=== PATIENT | female | born 1935 | race Caucasian/White ===

== ENCOUNTER 2016-10-22 17:53 | Observation (INO) | payer MEDICARE, MEDICAID ==
[2016-10-22 18:11] VITALS: BMI 37.5
--- NOTE | 2016-10-22 18:15 | ED PDOC ---
Arrival/HPI - General Time Seen by Provider: 10/22/16 18:05 Historian: Patient, Family - History of Present Illness Narrative History of Present Illness (Text): 10/22/16 18:13 Patient is a 81 year old female whose past medical history includes hypertension , diabetes, TIA, who presents to the emergency department with left arm pain after mechanical fall prior to arrival. Grandson translates history. Patient states she tripped and fell on a curb prior to arrival. She states she hit her face on the ground as well. Denies loss of consciousness. PMD: Dr. Sykes Time/Duration: Prior to Arrival Symptom Onset: Sudden Symptom Course: Unchanged Modifying Factors (Text): None Associated Symptoms (Text): None Past Medical History - Provider Review Nursing Documentation Reviewed: Yes - Cardiac Hx Hypertension: Yes - HEENT Hx HEENT Disorder: Yes (wears eye glasses) - Endocrine/Metabolic Hx Diabetes Mellitus Type 2: Yes - Hematological/Oncological Hx Anemia: Yes - Musculoskeletal/Rheumatological Hx Falls: No Hx Osteoarthritis: Yes Hx Osteoporosis: Yes - Gastrointestinal Hx Irritable Bowel: Yes - Psychiatric Hx Depression: Yes Hx Substance Use: No - Surgical History Hx Hysterectomy: Yes Family/Social History - Physician Review Nursing Documentation Reviewed: Yes Family/Social History: Unknown Family HX Smoking Status: Former Smoker Hx Alcohol Use: No Hx Substance Use: No Allergies/Home Meds Allergies/Adverse Reactions: Allergies Penicillins Allergy (Verified 10/22/16 18:11) ANAPHYLAXIS Home Medications: Home Meds Medication Instructions Recorded Confirmed Dicyclomine [Bentyl] 20 mg PO DAILY 03/11/16 03/11/16 Ibandronate [Boniva] 150 mg PO DAILY 03/11/16 03/11/16 Linaclotide [Linzess] 145 mcg PO DAILY 03/11/16 03/11/16 Meloxicam [Mobic] 15 mg PO DAILY 03/11/16 03/11/16 Metformin HCl [Glucophage] 500 mg PO BID 03/11/16 03/11/16 Niacin [Niacin ER] 1 tab PO DAILY 03/11/16 03/11/16 [place]-3 Acid Ethyl Esters [[place]-3 1 gm PO DAILY 03/11/16 03/11/16 Acid Ethyl Esters] Omeprazole [Omeprazole] 40 mg PO DAILY 03/11/16 03/11/16 Sertraline HCl [Sertraline HCl] 50 mg PO DAILY 03/11/16 03/11/16 Telmisartan/Hydrochlorothiazid 1 tab PO DAILY 03/11/16 03/11/16 [Telmisartan-Hctz 80-25 mg Tab] Tizanidine HCl [Zanaflex] 2 mg PO Q8H PRN 03/11/16 03/11/16 Review of Systems - Review of Systems Systems not reviewed;Unavailable: Language Barrier (son translates) Constitutional: absent: Fatigue, Fevers Eyes: absent: Vision Changes ENT: absent: Hearing Changes Respiratory: absent: SOB Cardiovascular: absent: Chest Pain Gastrointestinal: absent: Abdominal Pain Genitourinary Female: absent: Dysuria Musculoskeletal: Other (Left arm pain, left rib pain). absent: Back Pain, Neck Pain Skin: Other (abrasions). absent: Rash Neurological: absent: Dizziness, Focal Weakness Endocrine: absent: Diaphoresis Psychiatric: absent: Depression Physical Exam - Physical Exam Narrative Physical Exam (Text): Head: No scalp tenderness. No orbital tenderness. No pain with eye movements. No nasal tenderness. There is abrasion and tenderness to maxilla, no tmj tenderness. Normal jaw occlusion. No acute dental trauma. Eyes: PERRL. EOMI. Conjunctivae are not pale. Visual acuity and santana intact. ENT: Mucous membranes are moist and intact. No nasal tenderness. No orbital tenderness. Neck: Supple. Full ROM. No JVD. No lymphadenopathy. No midline tenderness. Cardiovascular: Regular rate. Regular rhythm. Systolic murmur. Pulmonary/Chest: No evidence of respiratory distress. Clear to auscultation bilaterally. Mild left ribcage pain with no crepitus or edema. Abdominal: Soft and non-distended. There is no tenderness. No rebound, guarding, or rigidity. No organomegaly. Good bowel sounds. Back: No CVA tenderness. No midline tenderness. Extremities: There is deformity noted to left humerus, no open laceration noted , no clavicular pain, no elbow or wrist pain, there are multiple abrasions noted to hand and toes, contractures noted to toes appear chronic, no ankle or achilles or knee pain, no hip with palpation or ROM, distal radial pulses intact , distal PT and DP pulses intact. Skin: Skin is warm and dry. No petechiae. No purpura. Abrasions noted to hand and toes with no obvious acute deformities. Neurological: Alert, awake, and oriented to person, place, time, and situation. Normal speech. Motor and sensory exam intact. Sensation intact distal to left upper extremity injury, motor and sensation intact distally, strong radial pulse, no wrist pain. Psychiatric: Good eye contact. Normal interaction, affect, and behavior. 10/22/16 21:47 Vital Signs Reviewed: Yes Vital Signs Pulse Resp BP Pulse Ox 10/22/16 21:01 79 18 178/78 H 100 10/22/16 17:54 80 18 185/77 H 100 Temperature: Afebrile Appearance: Positive for: Uncomfortable Pain Distress: Severe Mental Status: Positive for: Alert and Oriented X 3 Medical Decision Making ED Course and Treatment: Differential Diagnosis included but are not limited to: Fracture vs dislocation Prior Visits: Notes and results from previous visits were reviewed. Patient last seen in the ED on 03/02/16 for expressive aphasia and admitted for TIA. Progress Notes: Patient presents to ED history obtained from son and grandson who translate at bedside. Patient tripped and fell. No syncope. Does report she hit her head and complains of severe left arm pain. Reports pain to left chest with movement. Denies shortness of breath. She has prior history of stroke recently. Family states that she is at baseline and on exam there is no new deficits or focal weakness noted. CT obtained: CT Head w/o contrast IMPRESSION: No acute intracranial abnormality; atrophy and small vessel disease , unchanged; old infarcts, unchanged Dictated and Authenticated by: Judy Alvarez MD 10/22/2016 7:39 PM Eastern Time ([place] & [place]) CT Maxillofacial Without Intravenous Contrast IMPRESSION: No facial bone fracture; postsurgical changes in the maxillary sinuses with retention cysts/polyps Additional findings as described above. Dictated and Authenticated by: Judy Alvarez MD 10/22/2016 7:46 PM Eastern Time ([place] & [place]) 10/22/16 22:03 Chest xray with no pneumothorax or displaced rib fracture. Humerus xray with fracture with angulation and displacement, no shoulder dislocation noted. Hand and foot xrays with DJD, no obvious displaced fracture. Patient given IV morphine with some improvment in pain, although persists. Sling applied, patient remains neurovascularly intact. Multiple abrasions cleansed and dressed. Tetanus updated. Xray findings reviewed with family and patient. Previous admission in 2015, family requests admission to previous physician, which was Dr. Vasquez/Luis. This was discussed with Dr. Vasquez, who is agreeable to admission, requests Dr. Montero for ortho. I reviewed imaging with Dr. Pedraza, will continue sling, pain medication, will have patient sit up to improve angulation. Patient was found to be neurovascularly intact and patient was found to have no chest pain or shortness of breath with re-evaluation. Patient was noted to have no acute neuro deficits on re-evaluation. Treatment plan discussed extensively with son and patient. Will recommend follow -up with imaging official radiology reading. - Lab Interpretations Lab Results: 10/22/16 18:30 10/22/16 18:30 Lab Results 10/22/16 18:30: Sodium 140, Potassium 4.3, Chloride 107, Carbon Dioxide 21, Anion Gap 16, BUN 26 H, Creatinine 1.1, Est GFR ( Amer) 58, Est GFR (Non- Af Amer) 48, Random Glucose 92, Calcium 9.9, Total Bilirubin 0.5, AST 34, ALT 35 , Alkaline Phosphatase 76, Total Protein 8.3, Albumin 4.6, Globulin 3.7, Albumin /Globulin Ratio 1.2 10/22/16 18:30: PT 10.6, INR 0.98, APTT 27.1 10/22/16 18:30: WBC 4.1 L D, RBC 3.24 L, Hgb 10.7 L, Hct 31.0 L, MCV 95.7, MCH 33.0, MCHC 34.5, RDW 13.9, Plt Count 256, MPV 10.2, Gran % 58.6, Lymph % (Auto) 27.2, [place] % (Auto) 10.3 H, Eos % (Auto) 3.4, Baso % (Auto) 0.5, Gran # 2.39, Lymph # 1.1 L, [place] # 0.4, Eos # 0.1, Baso # 0.02 - RAD Interpretation Radiology Orders: 10/22/16 18:13 HEAD W/O CONTRAST [CT] Stat RIBS LEFT & PA CHEST [RAD] Stat 10/22/16 18:14 FOOT LEFT 3 VIEWS ROUTINE [RAD] Stat HAND LEFT 3 VIEWS ROUTINE [RAD] Stat SHOULDER LEFT [RAD] Stat 10/22/16 18:15 MAXILLOFACIAL W/O CONTRAST [CT] Stat 10/22/16 19:44 HUMERUS LEFT [RAD] Stat Senior Buyer Planner: Radiologist - EKG Interpretation EKG Interpretation (Text): 10/22/16 22:15 EKG at 20:11 normal sinus rhythm with first degree av block with premature atrial complexes Interpreted by ED Physician: Yes Type: 12 lead EKG - Medication Orders Current Medication Orders: Dextrose/Sodium Chloride (Dextrose 5%/0.45% Ns 1000 Ml) 1,000 mls @ 40 mls/hr IV .Q24H HERSON Morphine Sulfate (Morphine) 0.5 mg IVP Q4H PRN PRN Reason: Pain, moderate (4-7) Discontinued Medications Morphine Sulfate (Morphine) 2 mg IVP STAT STA Stop: 10/22/16 18:17 Last Admin: 10/22/16 18:38 Dose: 2 mg Tetanus/Reduced Diphtheria/Acell Pertussis (Boostrix Vaccine Inj) 0.5 ml IM .ONCE ONE Stop: 10/22/16 20:48 - Scribe Statement The provider has reviewed the documentation as recorded by the Lorenzo Rebolledo Provider Scribe Attestation: All medical record entries made by the Lorenzo were at my direction and personally dictated by me. I have reviewed the chart and agree that the record accurately reflects my personal performance of the history, physical exam, medical decision making, and the department course for this patient. I have also personally directed, reviewed, and agree with the discharge instructions and disposition. Disposition/Present on Arrival - Present on Arrival Any Indicators Present on Arrival: No History of DVT/PE: No History of Uncontrolled Diabetes: No Urinary Catheter: No History Surgical Site Infection Following: None - Disposition Have Diagnosis and Disposition been Completed?: Yes Diagnosis: Fracture, humerus, Head injury, Facial abrasion, Contusion of hand, Contusion, foot, Multiple abrasions, Rib contusion Disposition: HOSPITALIZED Disposition Time: 22:00 Patient Plan: Admission, Observation Condition: FAIR
[2016-10-22] MEDS ORDERED: Morphine 2 mg/ml ISec IVP STA (18:16)
[2016-10-22 18:41] LABS: ADD MANUAL DIFF? NO
[2016-10-22 19:17] LABS: BASO # 0.02 K/mm3 (0.0-2.0); BASO % 0.5 % (0.0-3.0); EOS # 0.1 (0.0-0.7); EOS % 3.4 % (1.5-5.0); GRAN # 2.39 (1.4-6.5); GRAN % 58.6 % (50.0-68.0); LYMPH # 1.1 (1.2-3.4); LYMPH % 27.2 % (22.0-35.0); MEAN CELL VOLUME 95.7 fL (80.0-105.0); MEAN CORPUSCULAR HGB CONC 34.5 g/dl (31.0-37.0); MEAN PLATELET VOLUME 10.2 fl (7.0-11.0); MONO # 0.4 (0.1-0.6); MONO % 10.3 % (1.0-6.0); PLATELET COUNT 256 10^3/uL (120.0-450.0); RED CELL DISTRIBUTION WIDTH 13.9 % (11.5-14.5); WHITE BLOOD COUNT 4.1 10^3/ul (4.5-11.0)
[2016-10-22 19:18] LABS: ALB/GLOB RATIO 1.2 (1.1-1.8); BILIRUBIN,TOTAL 0.5 mg/dL (0.2-1.3); CALCIUM 9.9 mg/dL (8.4-10.5); POTASSIUM 4.3 mmol/L (3.6-5.0); TOTAL PROTEIN 8.3 g/dL (5.8-8.3)
[2016-10-22 19:27] LABS: INR 0.98 (0.93-1.08); PARTIAL THROMBOPLASTIN TIME 27.1 Seconds (23.7-30.8)
--- NOTE | 2016-10-22 19:40 | CT ---
EXAM: CT Head Without Intravenous Contrast CLINICAL HISTORY: 81 years old, female; Injury or trauma; Fall; Additional info: Head injury TECHNIQUE: Axial computed tomography images of the head/brain without intravenous contrast. This CT exam was performed using one or more of the following dose reduction techniques: automated exposure control, adjustment of the mA and/or kV according to patient size, and/or use of iterative reconstruction technique. EXAM DATE/TIME: 10/22/2016 6:13 PM COMPARISON: CT - HEAD W/O (CODE STROKE) 03/11/2016 1:26:10 AM FINDINGS: Brain: There is dilatation of sulci gyri and ventricles. There is no midline shift. There is decreased attenuation in periventricular white matter. There is an old right periventricular white matter infarct. There are old right basal ganglia lacunar infarcts. There are no focal masses.There are basal ganglia calcifications. There are no focal hemorrhages. Nunes-white differentiation is visualized. Ventricles: See above Bones: Cranial vault is intact. Soft tissues: There are partially calcified subcutaneous scalp lesions, unchanged Sinuses: There is no acute sinusitis. Ears and mastoids: Middle ears and mastoids are unremarkable. Orbits: Orbital contents are unremarkable. Dental: There is streak artifact from dental fillings. IMPRESSION: No acute intracranial abnormality; atrophy and small vessel disease, unchanged; old infarcts, unchanged
--- NOTE | 2016-10-22 19:47 | CT ---
EXAM: CT Maxillofacial Without Intravenous Contrast CLINICAL HISTORY: 81 years old, female; Injury or trauma; Fall; Initial encounter; Abrasion; Forehead; Additional info: Facial trauma, upper lip pain TECHNIQUE: Axial computed tomography images of the face without intravenous contrast. This CT exam was performed using one or more of the following dose reduction techniques: automated exposure control, adjustment of the mA and/or kV according to patient size, and/or use of iterative reconstruction technique. Coronal and sagittal reformatted images were created and reviewed. EXAM DATE/TIME: 10/22/2016 6:15 PM COMPARISON: CT - HEAD W/O (CODE STROKE) 03/11/2016 1:26:10 AM FINDINGS: Bony structures: There are no facial bone fractures. There is streak artifact from dental fillings. There are degenerative changes in the upper cervical spine Brain: No acute abnormalities are seen in visualized portion of the brain. There are atrophic changes. A Ears and mastoids: Middle ears and mastoids are unremarkable Orbits: Orbital contents are unremarkable. Sinuses: There is no acute sinusitis. There are retention cysts/polyps in the maxillary sinuses. There have been bilateral antrectomies. Soft tissues: There are no superficial or deep facial masses. Airway: Airway is unremarkable. IMPRESSION: No facial bone fracture; postsurgical changes in the maxillary sinuses with retention cysts/polyps Additional findings as described above.
[2016-10-22] MEDS ORDERED: TDAP Vaccine 0.5 mL Syr IM ONE (20:47)
[2016-10-22] MEDS ORDERED: Dextrose 5%/0.45% NS 1,000 ML IV SCH (21:45)
--- NOTE | 2016-10-22 21:54 | CP.PCM.HP ---
<Hunter Scott - Last Filed: 10/22/16 23:26> History of Present Illness - History of Present Illness History of Present Illness: CC: "Fall" HPI: Pt is a 81 y/o F with a PMHx of HTN and Diabetes Mellitus who presents to the ED after reports of a fall earlier in the day, about 5 hours prior. Pt reports that she was walking when she tripped over the sidewalk and fell forward , landing on her left arm. Pt is accompanied by her grandson at bedside. Pt reports that she did not feel dizzy or faint prior to falling. Pt reports that she felt her heart racing after she fell because she was anxious. Pt is complaining of pain in her left arm and her right subcostal region. Pt reports that she did not hit her head, but scratched her lip. Pt denies fever, chills, chest pain, shortness of breath, nausea, and vomiting. PMHx: HTN, Diabetes Mellitus Home medications: Cannot recall home meds, but reports she takes diabetic, and HTN medications; grandson reports that he will bring her medication list Past Surgical Hx: Hysterectomy Allergies: Penicillin (rash) Social Hx: denies hx of smoking, alcohol, illicit drug use Family Hx: Diabetes, Cancer Present on Admission - Present on Admission Any Indicators Present on Admission: No Review of Systems - Constitutional Constitutional: absent: Chills, Fever - EENT Eyes: absent: Blurred Vision, Diplopia Ears: absent: Disequilibrium, Dizziness Nose/Mouth/Throat: absent: Epistaxis - Cardiovascular Cardiovascular: absent: Chest Pain, Dyspnea - Respiratory Respiratory: absent: Cough, Dyspnea - Gastrointestinal Gastrointestinal: absent: Abdominal Pain - Genitourinary Genitourinary: absent: Dysuria - Musculoskeletal Musculoskeletal: absent: Atrophy - Integumentary Integumentary: absent: Bleeding Lesions - Neurological Neurological: absent: Dizziness, Headaches - Psychiatric Psychiatric: absent: Anxiety - Hematologic/Lymphatic Hematologic: absent: Easy Bleeding Past Patient History - Past Social History Smoking Status: Former Smoker - CARDIAC Hx Hypertension: Yes - HEENT Hx HEENT Problems: Yes (wears eye glasses) - ENDOCRINE/METABOLIC Hx Diabetes Mellitus Type 2: Yes - HEMATOLOGICAL/ONCOLOGICAL Hx Anemia: Yes - MUSCULOSKELETAL/RHEUMATOLOGICAL Hx Falls: No Hx Osteoarthritis: Yes Hx Osteoporosis: Yes - GASTROINTESTINAL Hx Irritable Bowel: Yes - PSYCHIATRIC Hx Depression: Yes Hx Substance Use: No - SURGICAL HISTORY Hx Hysterectomy: Yes Meds Allergies/Adverse Reactions: Allergies Allergy/AdvReac Type Severity Reaction Status Date / Time Penicillins Allergy ANAPHYLAXIS Verified 10/22/16 18:11 Physical Exam - Constitutional Appears: No Acute Distress - Head Exam Head Exam: ATRAUMATIC, NORMOCEPHALIC - Eye Exam Eye Exam: EOMI, PERRL - ENT Exam ENT Exam: Mucous Membranes Moist. absent: Mucous Membranes Dry - Neck Exam Neck exam: Positive for: Full Rom. Negative for: Lymphadenopathy - Respiratory Exam Respiratory Exam: Clear to Auscultation Bilateral. absent: Rales, Rhonchi, Wheezes - Cardiovascular Exam Cardiovascular Exam: +S1, +S2. absent: Gallop, Rubs - GI/Abdominal Exam GI & Abdominal Exam: Normal Bowel Sounds, Soft. absent: Distended, Guarding, Tenderness - Extremities Exam Extremities exam: Positive for: pedal edema - Neurological Exam Neurological exam: Alert, Oriented x3 - Psychiatric Exam Psychiatric exam: Normal Affect, Normal Mood - Skin Skin Exam: Normal Color, Warm Results - Vital Signs Recent Vital Signs: Last Vital Signs Temp Pulse 79 10/22/16 21:01 Resp 18 10/22/16 21:01 BP 178/78 H 10/22/16 21:01 Pulse Ox 100 10/22/16 21:01 - Labs Result Diagrams: 10/22/16 18:30 10/22/16 18:30 Assessment & Plan - Assessment and Plan (Free Text) Assessment: Left humeral fracture secondary to fall: Left arm x-ray - humerus fracture (pending full report) Rib, hand, and foot x-ray pending Maxillofacial CT - no facial bone fracture (please see full report) Head CT - no acute intracranial abnormality (please see full report) EKG, chest x-ray, labs ordered for surgical clearance Pt made NPO D51/2NS IVF at 40 cc/hr Orthopedic surgery, Dr. Montero, consulted. Help appreciated. Diabetes Mellitus: Pt NPO D51/2NS IVF at 40 cc/hr Accuchecks achs HTN: Verify home meds Monitor bp B/L lower extremity edema: L/E venous dopplers pending Prophylactic Measures: DVT: Chemical anticoagulation held due to possible surgery in am, mechanical anticoagulation held due to b/l lower extremity edema GI: Protonix 40 mg po qd <Jan Vasquez - Last Filed: 10/27/16 08:54> Results - Vital Signs Recent Vital Signs: Last Vital Signs Temp 97.5 F L 10/23/16 07:30 Pulse 68 10/23/16 07:30 Resp 20 10/23/16 07:30 BP 157/72 H 10/23/16 07:30 Pulse Ox 98 10/23/16 07:30 - Labs Result Diagrams: 10/22/16 18:30 10/22/16 18:30 Attending/Attestation - Attestation I have personally seen and examined this patient.: Yes I have fully participated in the care of the patient.: Yes I have reviewed all pertinent clinical information: Yes Notes (Text): 10/27/16 08:54 Medical record note made by the resident after discussion with my direction and input after the patient was personally seen and examined by me. I have reviewed the chart and agree that the record accurately reflects by personal performance of the history, physical exam, data review, and medical decision-making, in the course for the patient. I have also personally directed the plan of care.
[2016-10-22] MEDS: Morphine 2 mg/ml ISec IVP PRN (22:03)
[2016-10-22 22:56] LABS: TROPONIN I 0.03 ng/mL
[2016-10-23] MEDS: Morphine 2 mg/ml ISec IVP PRN (00:13)
[2016-10-23] MEDS: Insulin Lispro (humaLOG) LOW Coverage SC SCH ×3 (07:35→17:17)
[2016-10-23 07:37] VITALS: BP 157/72; PULSE 68; RESP 20; TEMP 97.5; O2SAT 98
[2016-10-23 08:49] LABS: RETIC% 1.3 % (0.5-1.5)
[2016-10-23 09:06] LABS: IRON 59 ug/dL (45-180)
--- NOTE | 2016-10-23 09:15 | CARD ---
APPROVED REPORT EKG Measurement Heart [id number] <Conclusion> Sinus rhythm with 1st degree AV block with premature atrial complexes Otherwise normal ECG
--- NOTE | 2016-10-23 09:38 | CON ---
DATE: 10/23/2016 SUBJECTIVE: The patient suffered a displaced left humeral shaft fracture, nondominant arm, when she fell yesterday walking in the street; has mild imbalanced begin with. X-rays in the ER showed a spir al fracture, mildly displaced left humerus with a good humerus at the shaft with a good neurovascular status, mild deformity. I saw her this morning on 10/23/2016. I put her in a coaptation orthopedic cast splint and padded it well, and wrapped it with an Antonio bandage and she still has good neurovascu lar status and I will keep this coaptation sugar tong splint on for at least 2 weeks. The instructio ns through interpretation were: 1. Nonweightbearing on the left elbow. 2. Sleep sitting up and to not mobilize the left shoulder. I will see her in the office in a week's time and she has to sleep sitting up at home and do not put any weight on the left arm, but she coul d ambulate with assistance, so she does not fall again. I will follow her closely in the office every week to get periodic x-rays. There is no need for post -reduction x-ray now because the fracture is going to be improved by being dependent and to allow gra andrey to straighten it out in time. Artie Montero DO cc: [id number] TT: 10/23/2016 09:37:47 Confirmation # [id number] Dictation # [id number] juve
--- NOTE | 2016-10-23 09:45 | RAD ---
HISTORY: surgical clearance COMPARISON: 10/22/2016 FINDINGS: LUNGS: No active pulmonary disease. PLEURA: No significant pleural effusion identified, no pneumothorax apparent. CARDIOVASCULAR: Normal. OSSEOUS STRUCTURES: No significant abnormalities. VISUALIZED UPPER ABDOMEN: Normal. OTHER FINDINGS: None. IMPRESSION: No active disease.
--- NOTE | 2016-10-23 10:40 | RAD ---
PROCEDURE: Left humerus HISTORY: fracture COMPARISON: TECHNIQUE: Two views FINDINGS: There is a comminuted obliquely oriented displaced fracture through the midshaft of the humerus IMPRESSION: There is a comminuted obliquely oriented displaced fracture through the midshaft of the humerus
--- NOTE | 2016-10-23 10:41 | RAD ---
PROCEDURE: Radiographs of the Left Shoulder HISTORY: trauma, left shoulder pain COMPARISON: No prior. FINDINGS: BONES: There is a comminuted obliquely oriented displaced fracture through the midshaft of the humerus JOINTS: Normal. Glenohumeral and acromioclavicular joints preserved. No osteoarthritis. SOFT TISSUES: Normal. OTHER FINDINGS: None. IMPRESSION: There is a comminuted obliquely oriented displaced fracture through the midshaft of the humerus
--- NOTE | 2016-10-23 10:46 | RAD ---
PROCEDURE: Left Hand Radiographs. HISTORY: trauma COMPARISON: None. FINDINGS: BONES: Normal. No fracture. JOINTS: Degenerative changes are seen in the 3rd DIP joint and the base of the thumb SOFT TISSUES: Normal. OTHER FINDINGS: None. IMPRESSION: No acute fracture
--- NOTE | 2016-10-23 10:48 | RAD ---
PROCEDURE: Left Foot Radiographs. HISTORY: trauma COMPARISON: None. FINDINGS: BONES: Normal. No fracture. JOINTS: Degenerative changes are seen at the base of the metatarsals. Chronic bony deformity of the 1st proximal phalanx SOFT TISSUES: Normal. OTHER FINDINGS: None. IMPRESSION: No acute fracture
--- NOTE | 2016-10-23 10:49 | RAD ---
PROCEDURE: Radiographs of the Chest and Left Ribs. HISTORY: trauma, left rib pain COMPARISON: None available. TECHNIQUE: Frontal radiograph of the chest and multiple oblique radiographs of the left ribs were obtained. FINDINGS: LEFT RIBS: No fracture or focal lesion visualized. LUNGS: Clear. PLEURA: No pneumothorax or pleural fluid. CARDIOVASCULAR: Normal sized heart. No pulmonary vascular congestion. OTHER FINDINGS: None. IMPRESSION: Unremarkable radiographs of the chest and left ribs. No left rib fracture.
--- NOTE | 2016-10-23 13:27 | CP.PCM.DIS ---
<Tani Tomlin - Last Filed: 10/23/16 19:18> Provider - Provider Date of Admission: 10/22/16 20:52 Attending physician: Jeremie Smith MD Primary care physician: Zhang Sykes MD Consults: Orthopedic surgery - Dr. Montero Time Spent in preparation of Discharge (in minutes): 30 Hospital Course - Lab Results Lab Results: Most Recent Lab Values WBC 4.1 10^3/ul (4.5-11.0) L D 10/22/16 18:30 RBC 3.24 10^6/uL (3.5-6.1) L 10/22/16 18:30 Hgb 10.7 gm/dL (12.0-16.0) L 10/22/16 18:30 Hct 31.0 % (36.0-48.0) L 10/22/16 18:30 MCV 95.7 fL (80.0-105.0) 10/22/16 18:30 MCH 33.0 pg (25.0-35.0) 10/22/16 18:30 MCHC 34.5 g/dl (31.0-37.0) 10/22/16 18:30 RDW 13.9 % (11.5-14.5) 10/22/16 18:30 Plt Count 256 10^3/uL (120.0-450.0) 10/22/16 18:30 MPV 10.2 fl (7.0-11.0) 10/22/16 18:30 Gran % 58.6 % (50.0-68.0) 10/22/16 18:30 Lymph % (Auto) 27.2 % (22.0-35.0) 10/22/16 18:30 Nuckolls % (Auto) 10.3 % (1.0-6.0) H 10/22/16 18:30 Eos % (Auto) 3.4 % (1.5-5.0) 10/22/16 18:30 Baso % (Auto) 0.5 % (0.0-3.0) 10/22/16 18:30 Gran # 2.39 (1.4-6.5) 10/22/16 18:30 Lymph # 1.1 (1.2-3.4) L 10/22/16 18:30 Nuckolls # 0.4 (0.1-0.6) 10/22/16 18:30 Eos # 0.1 (0.0-0.7) 10/22/16 18:30 Baso # 0.02 K/mm3 (0.0-2.0) 10/22/16 18:30 Retic Count 1.30 % (0.5-1.5) 10/23/16 08:30 PT 10.6 Seconds (9.9-11.8) 10/22/16 18:30 INR 0.98 (0.93-1.08) 10/22/16 18:30 APTT 27.1 Seconds (23.7-30.8) 10/22/16 18:30 Sodium 140 mmol/L (132-148) 10/22/16 18:30 Potassium 4.3 mmol/L (3.6-5.0) 10/22/16 18:30 Chloride 107 mmol/L (98-107) 10/22/16 18:30 Carbon Dioxide 21 mmol/L (21-33) 10/22/16 18:30 Anion Gap 16 (10-20) 10/22/16 18:30 BUN 26 mg/dL (7-21) H 10/22/16 18:30 Creatinine 1.1 mg/dL (0.5-1.4) 10/22/16 18:30 Est GFR ( Amer) 58 10/22/16 18:30 Est GFR (Non-Af Amer) 48 10/22/16 18:30 Random Glucose 92 mg/dL (70-110) 10/22/16 18:30 Calcium 9.9 mg/dL (8.4-10.5) 10/22/16 18:30 Iron 59 ug/dL (45-180) 10/23/16 08:30 TIBC 247 ug/dL (265-497) L 10/23/16 08:30 % Saturation 24 % (20-55) 10/23/16 08:30 Total Bilirubin 0.5 mg/dL (0.2-1.3) 10/22/16 18:30 AST 34 U/L (15-39) 10/22/16 18:30 ALT 35 U/L (7-56) 10/22/16 18:30 Alkaline Phosphatase 76 U/L (38-133) 10/22/16 18:30 Lactate Dehydrogenase 682 U/L (333-699) 10/22/16 22:20 Total Creatine Kinase 125 U/L (35-230) 10/22/16 22:20 Troponin I 0.03 ng/mL D 10/22/16 22:20 Total Protein 8.3 g/dL (5.8-8.3) 10/22/16 18:30 Albumin 4.6 g/dL (3.0-4.8) 10/22/16 18:30 Globulin 3.7 gm/dL 10/22/16 18:30 Albumin/Globulin Ratio 1.2 (1.1-1.8) 10/22/16 18:30 - Hospital Course Hospital Course: Patient is a 81yo F w/ PMHx of HTN and DM Type II who presented to the ED from a fall approximately 5 hours prior. Patient reports landing on her L arm. Head CT was ordered, which was negative for any bleeds or intracranial abnormalities. Maxillofacial CT showed no facial bone fracture. Left ribs, foot , and hand X-ray were negative for fractures. CXR was negative. ECG showed sinus rhythm w/ 1st degree AV block w/ premature atrial complexes. Humerus X- ray showed comminuted obliquely oriented displaced fracture through the midshaft of the humerus, which was also discovered in the shoulder X-ray. Ortho was consulted and as per Dr. Nur, coaptation orthopedic cast splint was put on with padding and fernanda bandage. Patient was instructed to 1. Not place any weight on the left shoulder or arm and 2. Sleep in an upright position with no weight baring on the shoulder. Considering that the patient has good neurovascular status, she was instructed to follow up at Dr. Nur's office on Sunday, October 30. She was told to call tomorrow and make an appointment. Dr. De Jesus provided his office phone number and address. In the meantime, no weight bearing on L elbow was advised. Patient was discharged with the splint in place and was advised to continue home medications. Patient and family were agreeable to discharge. Discharge Exam - Head Exam Head Exam: ATRAUMATIC, NORMOCEPHALIC - Eye Exam Eye Exam: EOMI, PERRL - ENT Exam ENT Exam: Mucous Membranes Moist - Respiratory Exam Respiratory Exam: Clear to PA & Lateral. absent: Rales, Rhonchi, Wheezes - Cardiovascular Exam Cardiovascular Exam: RRR, +S1, +S2. absent: Gallop, JVD, Rubs - GI/Abdominal Exam GI & Abdominal Exam: Normal Bowel Sounds, Soft. absent: Distended, Firm, Guarding, Hernia, Rebound, Tenderness - Extremities Exam Additional comments: left upper extremity mobility limited, tender to palpation; sensory intact; neurovascularly intact; pulses intact 2/4 motor function 5/5 bilaterally in upper and lower extremities sensory intact throughout - Neurological Exam Neurological exam: Alert, Oriented x3 - Psychiatric Exam Psychiatric exam: Normal Affect, Normal Mood - Skin Skin Exam: Dry, Intact, Normal Color, Warm Discharge Plan - Follow Up Plan Condition: FAIR Disposition: HOME/ ROUTINE Instructions: Arm Fracture in Adults (DC), Fall Prevention (DC) Additional Instructions: 1. Follow up with your PMD, Dr. Sykes within 1 week of discharge. 2. Follow up with your orthopedic surgeon, Dr. Montero within 1 week of discharge. Please contact his office today to setup an appointment. 3. Return to the emergency room if your symptoms worsen or change in severity/ quality. 4. Follow the instructions the orthopedic surgeon provided to you: 1. Do not place any weight on your shoulder/arm. 2. Sleep upright in a position that does not place any pressure on your left arm. 3. Follow up with the orthopedic surgeon in 1 week. Notes from your RN Delia: *It may help to prop your left arm up on a pillow while you sleep. Please do not let the arm "drag" down. This is what is meant by non weight bearing. *Dr. Montero's office phone number is [phone]. Please call him to set up an appointment. *Please try to keep your cast dry. You may place a plastic bag over it and tape it closed when you bathe or shower. *Please have assistance in showering and/or bathing, as you may feel off balance with the weight of the cast. *If you lose feeling in your fingers or the skin changes color (blue or purple) , please return to the emergency room. Referrals: Zhang Sykes MD [Primary Care Provider] - Artie Montero DO [Staff Provider] - <Jan Vasquez - Last Filed: 10/27/16 08:59> Provider - Provider Date of Admission: 10/22/16 20:52 Attending physician: Jeremie Smith MD Primary care physician: Zhang Sykes MD Hospital Course - Lab Results Lab Results: Most Recent Lab Values WBC 4.1 10^3/ul (4.5-11.0) L D 10/22/16 18:30 RBC 3.24 10^6/uL (3.5-6.1) L 10/22/16 18:30 Hgb 10.7 gm/dL (12.0-16.0) L 10/22/16 18:30 Hct 31.0 % (36.0-48.0) L 10/22/16 18:30 MCV 95.7 fL (80.0-105.0) 10/22/16 18:30 MCH 33.0 pg (25.0-35.0) 10/22/16 18:30 MCHC 34.5 g/dl (31.0-37.0) 10/22/16 18:30 RDW 13.9 % (11.5-14.5) 10/22/16 18:30 Plt Count 256 10^3/uL (120.0-450.0) 10/22/16 18:30 MPV 10.2 fl (7.0-11.0) 10/22/16 18:30 Gran % 58.6 % (50.0-68.0) 10/22/16 18:30 Lymph % (Auto) 27.2 % (22.0-35.0) 10/22/16 18:30 Nuckolls % (Auto) 10.3 % (1.0-6.0) H 10/22/16 18:30 Eos % (Auto) 3.4 % (1.5-5.0) 10/22/16 18:30 Baso % (Auto) 0.5 % (0.0-3.0) 10/22/16 18:30 Gran # 2.39 (1.4-6.5) 10/22/16 18:30 Lymph # 1.1 (1.2-3.4) L 10/22/16 18:30 Nuckolls # 0.4 (0.1-0.6) 10/22/16 18:30 Eos # 0.1 (0.0-0.7) 10/22/16 18:30 Baso # 0.02 K/mm3 (0.0-2.0) 10/22/16 18:30 Retic Count 1.30 % (0.5-1.5) 10/23/16 08:30 PT 10.6 Seconds (9.9-11.8) 10/22/16 18:30 INR 0.98 (0.93-1.08) 10/22/16 18:30 APTT 27.1 Seconds (23.7-30.8) 10/22/16 18:30 Sodium 140 mmol/L (132-148) 10/22/16 18:30 Potassium 4.3 mmol/L (3.6-5.0) 10/22/16 18:30 Chloride 107 mmol/L (98-107) 10/22/16 18:30 Carbon Dioxide 21 mmol/L (21-33) 10/22/16 18:30 Anion Gap 16 (10-20) 10/22/16 18:30 BUN 26 mg/dL (7-21) H 10/22/16 18:30 Creatinine 1.1 mg/dL (0.5-1.4) 10/22/16 18:30 Est GFR ( Amer) 58 10/22/16 18:30 Est GFR (Non-Af Amer) 48 10/22/16 18:30 POC Glucose (mg/dL) 155 mg/dL (65-110) H 10/23/16 16:15 Random Glucose 92 mg/dL (70-110) 10/22/16 18:30 Calcium 9.9 mg/dL (8.4-10.5) 10/22/16 18:30 Iron 59 ug/dL (45-180) 10/23/16 08:30 TIBC 247 ug/dL (265-497) L 10/23/16 08:30 % Saturation 24 % (20-55) 10/23/16 08:30 Ferritin 133.0 ng/mL 10/23/16 08:30 Total Bilirubin 0.5 mg/dL (0.2-1.3) 10/22/16 18:30 AST 34 U/L (15-39) 10/22/16 18:30 ALT 35 U/L (7-56) 10/22/16 18:30 Alkaline Phosphatase 76 U/L (38-133) 10/22/16 18:30 Lactate Dehydrogenase 682 U/L (333-699) 10/22/16 22:20 Total Creatine Kinase 125 U/L (35-230) 10/22/16 22:20 Troponin I 0.03 ng/mL D 10/22/16 22:20 Total Protein 8.3 g/dL (5.8-8.3) 10/22/16 18:30 Albumin 4.6 g/dL (3.0-4.8) 10/22/16 18:30 Globulin 3.7 gm/dL 10/22/16 18:30 Albumin/Globulin Ratio 1.2 (1.1-1.8) 10/22/16 18:30 Vitamin B12 658 pg/mL (239-931) 10/23/16 08:30 Folate > 20.0 ng/mL 10/23/16 08:30 Serum Immunofixation See note 10/23/16 08:30 Attending/Attestation - Attestation I have personally seen and examined this patient.: Yes I have fully participated in the care of the patient.: Yes I have reviewed all pertinent clinical information, including history, physical exam and plan: Yes Notes (Text): 10/27/16 08:59 Medical record note made by the resident after discussion with my direction and input after the patient was personally seen and examined by me. I have reviewed the chart and agree that the record accurately reflects by personal performance of the history, physical exam, data review, and medical decision-making, in the course for the patient. I have also personally directed the plan of care.
--- NOTE | 2016-10-23 16:14 | US ---
HISTORY: Leg pain and swelling. Evaluate for DVT PHYSICIAN(S): Jae Colorado MD. TECHNIQUE: Duplex sonography and color-flow Doppler with graded compression were used to evaluate the deep venous systems of both lower extremities. The exam is limited by body habitus and edema. FINDINGS: The visualized deep venous systems of both lower extremities are sonographically normal and compressible. Normal wave forms and augmentation are seen. There is no sonographic evidence for deep venous thrombosis in the visualized segments of both lower extremities. IMPRESSION: No sonographic evidence for deep venous thrombosis in the visualized segments of both lower extremities.
[2016-10-23 19:18] LABS: FOLATE > 20.0 ng/mL
== END 2016-10-23 18:54 | disposition home or self-care (01) ==
LOC: ED 17:53 → ERH 20:52 → 5RNO 23:33
PROVIDERS: ADMIT Internal Medicine; ATTEND Internal Medicine
DX: S42.352A Displaced comminuted fracture of shaft of humerus, left arm, initial encounter for closed fracture (principal); S09.90XA Unspecified injury of head, initial encounter; S60.229A Contusion of unspecified hand, initial encounter; S20.219A Contusion of unspecified front wall of thorax, initial encounter; S00.81XA Abrasion of other part of head, initial encounter; W01.0XXA Fall on same level from slipping, tripping and stumbling without subsequent striking against object, initial encounter; I10 Essential (primary) hypertension; E11.9 Type 2 diabetes mellitus without complications; M81.0 Age-related osteoporosis without current pathological fracture; R60.0 Localized edema; Y93.01 Activity, walking, marching and hiking; Y92.480 Sidewalk as the place of occurrence of the external cause; Y99.9 Unspecified external cause status; Z90.710 Acquired absence of both cervix and uterus; Z87.891 Personal history of nicotine dependence; Z86.73 Personal history of transient ischemic attack (TIA), and cerebral infarction without residual deficits; Z83.3 Family history of diabetes mellitus
CPT/HCPCS: 36415; 70450; 70486; 71010; 71101; 73030; 73060; 73130; 73630; 80053; 82550; 82607; 82728; 82746; 82948; 83540; 83550; 83615; 84484; 85025; 85044; 85610; 85730; 86334; 90471; 90715; 93005; 93970; 96374; 99285; G0378; J2270; J7042

== ENCOUNTER 2016-10-24 22:13 | Emergency (ER) | payer MEDICARE, MEDICAID ==
[2016-10-24 22:14] VITALS: BMI 37.5
[2016-10-24 22:43] VITALS: BP 132/78; PULSE 78; RESP 18; TEMP 98.1; O2SAT 99
--- NOTE | 2016-10-24 23:42 | ED PDOC ---
Arrival/HPI - General Chief Complaint: Finger,Hand,&Wrist Time Seen by Provider: 10/24/16 22:34 Historian: Patient, Family - History of Present Illness Narrative History of Present Illness (Text): 10/25/16 03:07 81yr old female with recent fx to humerus presents with family concern for swelling to hand and eccymosis. family is worried that the wrapping is too tight because there is now ecchymosis and swelling to the dorsal hand. pt denies numbness, weakness, tingling in the extremity. no fever/chills. denies pain at present time. no other complaints. pt was just discharge from hospital yesterday after being treated by dr. kang for humerus fracture Past Medical History - Provider Review Nursing Documentation Reviewed: Yes - Travel History Have you recently traveled outside [place] w/in the past 3 mons?: No - Cardiac Hx Hypertension: Yes - HEENT Hx HEENT Disorder: Yes (wears eye glasses) - Endocrine/Metabolic Hx Diabetes Mellitus Type 2: Yes - Hematological/Oncological Hx Anemia: Yes - Musculoskeletal/Rheumatological Hx Falls: No Hx Osteoarthritis: Yes Hx Osteoporosis: Yes - Gastrointestinal Hx Irritable Bowel: Yes - Psychiatric Hx Depression: Yes Hx Substance Use: No - Surgical History Hx Hysterectomy: Yes Family/Social History - Physician Review Nursing Documentation Reviewed: Yes Family/Social History: Unknown Family HX Smoking Status: Former Smoker Hx Alcohol Use: No Hx Substance Use: No Allergies/Home Meds Allergies/Adverse Reactions: Allergies Penicillins Allergy (Verified 10/22/16 18:11) ANAPHYLAXIS Home Medications: Home Meds Medication Instructions Recorded Confirmed Dicyclomine [Bentyl] 20 mg PO DAILY 03/11/16 03/11/16 Ibandronate [Boniva] 150 mg PO DAILY 03/11/16 03/11/16 Linaclotide [Linzess] 145 mcg PO DAILY 03/11/16 03/11/16 Meloxicam [Mobic] 15 mg PO DAILY 03/11/16 03/11/16 Metformin HCl [Glucophage] 500 mg PO BID 03/11/16 03/11/16 Niacin [Niacin ER] 1 tab PO DAILY 03/11/16 03/11/16 [place]-3 Acid Ethyl Esters 1 gm PO DAILY 03/11/16 03/11/16 Omeprazole 40 mg PO DAILY 03/11/16 03/11/16 Sertraline HCl 50 mg PO DAILY 03/11/16 03/11/16 Telmisartan/Hydrochlorothiazid 1 tab PO DAILY 03/11/16 03/11/16 [Telmisartan-Hctz 80-25 mg Tab] Tizanidine HCl [Zanaflex] 2 mg PO Q8H PRN 03/11/16 03/11/16 Review of Systems - Review of Systems Constitutional: absent: Fatigue Respiratory: absent: SOB, Cough Cardiovascular: absent: Chest Pain, Palpitations Gastrointestinal: absent: Abdominal Pain, Nausea, Vomiting Musculoskeletal: Arthralgias, Other (swelling and ecchymosis) Skin: absent: Rash, Pruritis Neurological: absent: Headache, Dizziness Psychiatric: absent: Anxiety Physical Exam Vital Signs Reviewed: Yes Vital Signs Temp Pulse Resp BP Pulse Ox 10/24/16 22:40 98.1 F 78 18 132/78 99 10/24/16 22:36 98.1 F 78 18 132/78 99 Temperature: Afebrile Blood Pressure: Normal Pulse: Regular Respiratory Rate: Normal Appearance: Positive for: Well-Appearing, Non-Toxic, Comfortable Pain Distress: None Mental Status: Positive for: Alert and Oriented X 3 - Systems Exam Head: Present: Atraumatic Respiratory/Chest: Present: Clear to Auscultation Cardiovascular: Present: Regular Rate and Rhythm Upper Extremity: Present: NORMAL PULSES, Swelling, Neurovascularly Intact, Capillary Refill < 2s, Other (left arm; coaptation splint noted to left arm; antonio wrap and cling on forearm; arm in sling; there is ecchymosis and swelling noted to the dorsal aspect of the hand; sensation intact, cap refill <2. radial pulse palpable and strong. ). No: Normal ROM, Erythema Neurological: Present: Speech Normal Skin: Present: Warm, Dry, Normal Color. No: Rashes Psychiatric: Present: Alert, Oriented x 3 Medical Decision Making ED Course and Treatment: 10/24/16 23:46 pt non toxic well appearing; no distress. pt with left humeral fracture, in splint. pt with swelling and bruising to the left hand. cap refill <2. sensation intact , radial pulse present. there are no signs of decreased circulation or compartment syndrome. pt has full rom of all fingers. no paresthesias. The Antonio wrap and dressing on the forearm into the hand is NOT tight; i am able to place my fingers inside the dressing and palpate the radial pulse. case discussed with dr. kang. pt can f/u in his office on . pt seen and evaluated by dr. ramirez; no signs of circulatory problems. Patient was advised to keep the hand elevated higher than the elbow while using the sling to minimize the amount of swelling into the dorsal aspect of the hand impression: bruise, hand swelling hand, humeral fracture f/u with dr. kang keep hand elevated, use sling return if symptoms worsen,persist or if new symptoms develop. Disposition/Present on Arrival - Present on Arrival Any Indicators Present on Arrival: Yes History of DVT/PE: No History of Uncontrolled Diabetes: Yes Urinary Catheter: No History of Decub. Ulcer: No History Surgical Site Infection Following: None - Disposition Have Diagnosis and Disposition been Completed?: Yes Diagnosis: Arm bruise, Arm swelling, Humeral fracture Disposition: HOME/ ROUTINE Disposition Time: 23:38 Patient Plan: Discharge Condition: GOOD Additional Instructions: Follow up with dr. kang on ; call tomorrow to schedule an appointment keep hand elevated, use sling follow up with the primary care physician within the next 2 days return immediately if symptoms worsen,persist or if new symptoms develop. Referrals: Zhang Sykes MD [Primary Care Provider] - Follow up with primary Artie Kang DO [Staff Provider] - Follow up with primary
== END 2016-10-24 23:55 | disposition home or self-care (01) ==
LOC: ED 22:13
DX: S42.302A Unspecified fracture of shaft of humerus, left arm, initial encounter for closed fracture (principal); S40.022A Contusion of left upper arm, initial encounter; X58.XXXA Exposure to other specified factors, initial encounter; M79.89 Other specified soft tissue disorders; Z87.891 Personal history of nicotine dependence; I10 Essential (primary) hypertension; E11.9 Type 2 diabetes mellitus without complications

== ENCOUNTER 2018-08-11 21:51 | Inpatient (IN) | payer MEDICARE, MEDICAID ==
[2018-08-11] MEDS ORDERED: Heparin25000 units/250ml 1/2NS 25,000 UNITS/250 ML BAG IV PRN (22:31)
[2018-08-11 22:45] LABS: BASO # 0.01 K/mm3 (0.0-2.0); BASO % 0.2 % (0.0-3.0); EOS # 0.1 (0.0-0.7); EOS % 1.2 % (1.5-5.0); HEMOGLOBIN 9.3 g/dL (12.0-16.0); LYMPH # 0.6 (1.2-3.4); LYMPH % 12.4 % (22.0-35.0); MEAN CELL VOLUME 96.9 fl (80.0-105.0); MEAN CORPUSCULAR HEMOGLOBIN 31.7 pg (25.0-35.0); MEAN CORPUSCULAR HGB CONC 32.7 g/dl (31.0-37.0); MEAN PLATELET VOLUME 10.3 fl (7.0-11.0); MONO # 0.6 (0.1-0.6); MONO % 12.4 % (1.0-6.0); RBC 2.93 10^6/uL (3.5-6.1); RED CELL DISTRIBUTION WIDTH 14.3 % (11.5-14.5); WHITE BLOOD COUNT 4.9 10^3/uL (4.5-11.0)
--- NOTE | 2018-08-11 22:45 | ED PDOC ---
Arrival/HPI - General Chief Complaint: Palpitations Historian: Patient, Family (Family at bedside deny any history of aFib) - History of Present Illness Narrative History of Present Illness (Text): 82 year old female, whose past medical history includes TIA, hypertension, and diabetes, who was transferred from [facility] ER to the emergency department for shortness of breath and new onset aFib. Patient states she has had shortness of breath over the past 2 days. Family denies any history of aFib and notes they have an appointment with [facility] [employer], whose name they do not know, on 08/13/18 for establishing care visit. Pt and family notes some mild leg swelling. Patient denies any chest pain, abdominal pain, constipation, diarrhea, dark/bloody stools, recent traumas or falls or any other complaints. PMD: Zhang Davis The transferring physician is Jose Guardado from [facility] emergency room for aFib and shortness of breath. Transferred per patients request- as family is from [place] and would be difficult for them to go to [facility]. 08/12/18 01:08 Time/Duration: Other (Patient notes shortness of breath over past 2 days, transferred from [facility] ER for shortness of breath and aFib) Symptom Onset: Sudden Symptom Course: Unchanged Activities at Onset: Light Past Medical History - Provider Review Nursing Documentation Reviewed: Yes - Cardiac Hx Hypertension: Yes - HEENT Hx HEENT Disorder: Yes (wears eye glasses) - Endocrine/Metabolic Hx Diabetes Mellitus Type 2: Yes - Hematological/Oncological Hx Anemia: Yes - Musculoskeletal/Rheumatological Hx Falls: No Hx Osteoarthritis: Yes Hx Osteoporosis: Yes - Gastrointestinal Hx Irritable Bowel: Yes - Psychiatric Hx Depression: Yes Hx Substance Use: No - Surgical History Hx Hysterectomy: Yes Family/Social History - Physician Review Nursing Documentation Reviewed: Yes Family/Social History: No Known Family HX Smoking Status: Former Smoker Hx Alcohol Use: No Hx Substance Use: No Allergies/Home Meds Allergies/Adverse Reactions: Allergies Penicillins Allergy (Verified 08/11/18 22:02) ANAPHYLAXIS Home Medications: Home Meds Medication Instructions Recorded Confirmed Metformin HCl [Glucophage] 500 mg PO BID 03/11/16 08/11/18 Ferron-3 Acid Ethyl Esters 1 gm PO DAILY 03/11/16 08/11/18 Omeprazole 40 mg PO DAILY 03/11/16 08/11/18 Bumetanide [Bumex] 0.5 mg PO DAILY 08/11/18 08/11/18 Butalbit/Acetamin/Caff/Codeine 1 cap PO Q4H PRN 08/11/18 08/11/18 [[id number]-[id number]-Codein] Cyanocobalamin [Vitamin B12 1000 1,000 mcg PO DAILY 08/11/18 08/11/18 mcg Tab] Ergocalciferol (Vitamin D2) 1 cap PO MO 08/11/18 08/11/18 [Vitamin D2] Ibandronate Sodium [Boniva] 150 mg PO DAILY 08/11/18 08/11/18 Iron Polysaccharide [Ferrex-150] 150 mg PO BID 08/11/18 08/11/18 Nebivolol [Bystolic] 10 mg PO DAILY 08/11/18 08/11/18 Review of Systems - Physician Review All systems were reviewed & negative as marked: Yes - Review of Systems Constitutional: absent: Fatigue, Weight Change Eyes: absent: Vision Changes ENT: absent: Hearing Changes, Tinnitus Respiratory: SOB (Patient notes shortness of breath over the past 2 days ). absent: Normal Cardiovascular: Normal. absent: Chest Pain Gastrointestinal: Normal. absent: Abdominal Pain, Stool Changes (Patient denies dark/bloody stools ), Constipation, Diarrhea, Nausea, Vomiting, Appetite Changes, Hematochezia, Hematemesis Genitourinary Female: absent: Dysuria, Frequency, Hematuria Musculoskeletal: absent: Arthralgias, Back Pain, Neck Pain Skin: absent: Rash, Pruritis, Skin Lesions, Laceration Neurological: absent: Headache, Dizziness, Focal Weakness, Gait Changes Physical Exam Vital Signs Reviewed: Yes Vital Signs Temp Pulse Resp BP Pulse Ox 08/11/18 22:00 97.7 F 87 16 160/84 H 100 Temperature: Afebrile Blood Pressure: Hypertensive Pulse: Regular Respiratory Rate: Normal Appearance: Positive for: Well-Appearing, Non-Toxic Pain Distress: None Mental Status: Positive for: Alert and Oriented X 3 - Systems Exam Head: Present: Atraumatic, Normocephalic Pupils: Present: PERRL Extroacular Muscles: Present: EOMI Conjunctiva: Present: Normal Mouth: Present: Moist Mucous Membranes Pharnyx: Present: Normal Neck: Present: Normal Range of Motion. No: Meningeal Signs, MIDLINE TENDERNESS Respiratory/Chest: Present: Other (Mild cackles heard in lungs). No: Respiratory Distress (not in any acute distress) Cardiovascular: Present: Irregular Rhythm (Irregularly irregular heart rhythm ) Abdomen: Present: Normal Bowel Sounds. No: Tenderness, Distention, Peritoneal Signs Back: Present: Normal Inspection. No: CVA Tenderness, Midline Tenderness Upper Extremity: Present: Normal Inspection. No: Cyanosis, Edema Lower Extremity: Present: Edema (Bilateral pitting edema 1+ ). No: Normal Inspection Neurological: Present: GCS=15, CN II-XII Intact, Speech Normal Skin: Present: Warm, Dry, Normal Color. No: Rashes Psychiatric: Present: Alert, Oriented x 3, Normal Insight, Normal Concentration Medical Decision Making ED Course and Treatment: 08/11/18 22:20 Impression: 82 year old female who was transferred from [facility] emergency room to the emergency department for shortness of breath and aFib. Afib noted on the monitor. No headache, weakness of FND. No chest pain. No abdominal pain. No dark or bloody stool. No weakness. Likely new onset afib. Pt is on nidolol for BP control. Differential Diagnosis included but are not limited to: Plan: -- Labs -- EKG -- Glucose, POC Routine -- Lasix -- Heparin -- Reassess and disposition Prior Visits: Notes and results from previous visits were reviewed. Progress Notes: 08/11/18 22:30 Spoke to Lazarus Umanzor, who said no rate control at this time but recommends starting a Heparin drip. Patient denies any dark or bloody stool, recent falls, traumas, current anticoagulants or family history of bleeding disorders. Will start Heparin. Patient has mild crackles in lungs, otherwise no acute distress. Patient was giv en Albuterol at [facility], will administer lasix given mild crackles. Xray from previous site largely unremarkable. 08/11/18 22:[address] Contreras who is aware of and agrees with plan. Dr. Contreras accepts patient onto her service. pt in NAD, agreeable to plan. - EKG Interpretation EKG Interpretation (Text): 08/11/18 EKG: Ordered, reviewed, and independently interpreted the EKG. Rate : 59 BPM Rhythm : aFib Interpretation : No STEMI Interpreted by ED Physician: Yes Type: 12 lead EKG - Scribe Statement The provider has reviewed the documentation as recorded by the Lorenzo Mcdermott All medical record entries made by the Lorenzo were at my direction and personally dictated by me. I have reviewed the chart and agree that the record accurately reflects my personal performance of the history, physical exam, medical decision making, and the department course for this patient. I have also personally directed, reviewed, and agree with the discharge instructions and disposition. Disposition/Present on Arrival - Present on Arrival Any Indicators Present on Arrival: No History of DVT/PE: No History of Uncontrolled Diabetes: Yes Urinary Catheter: No History of Decub. Ulcer: No History Surgical Site Infection Following: None - Disposition Have Diagnosis and Disposition been Completed?: Yes Diagnosis: New onset a-fib, Shortness of breath Disposition Time: 22:45 Patient Problems: Current Active Problems Problem Status Onset New onset a-fib Acute Shortness of breath Acute Condition: STABLE
[2018-08-11 22:54] LABS: INR 1.12; PARTIAL THROMBOPLASTIN TIME 36.9 Seconds (26.9-38.3); PROTHROMBIN TIME 12.4 SECONDS (9.4-12.5)
[2018-08-11 22:59] LABS: ALB/GLOB RATIO 1.4 (1.1-1.8); ALBUMIN 4.5 g/dL (3.0-4.8); ALT/SGPT 45 U/L (7-56); AST/SGOT 57 U/L (14-36); BLOOD UREA NITROGEN 37 mg/dL (7-21); GFR NON-AFRICAN AMERICAN 43
[2018-08-11 23:10] LABS: B-TYPE NATRIURETIC PEPTIDE 6470 pg/mL (0-450); TROPONIN I < 0.01 ng/mL
[2018-08-11] MEDS ORDERED: Heparin 25,000units in 1/2NS 250 ML BAG IV PRN (23:12)
[2018-08-12 08:58] LABS: BASO # 0.02 K/mm3 (0.0-2.0); BASO % 0.4 % (0.0-3.0); EOS # 0.1 (0.0-0.7); EOS % 2.5 % (1.5-5.0); HEMOGLOBIN 9.2 g/dL (12.0-16.0); LYMPH # 0.8 (1.2-3.4); LYMPH % 16.1 % (22.0-35.0); MEAN CELL VOLUME 97.2 fl (80.0-105.0); MEAN CORPUSCULAR HEMOGLOBIN 32.2 pg (25.0-35.0); MEAN CORPUSCULAR HGB CONC 33.1 g/dl (31.0-37.0); MEAN PLATELET VOLUME 10.5 fl (7.0-11.0); MONO # 0.9 (0.1-0.6); MONO % 18.6 % (1.0-6.0); RBC 2.86 10^6/uL (3.5-6.1); RED CELL DISTRIBUTION WIDTH 14.1 % (11.5-14.5); WHITE BLOOD COUNT 4.8 10^3/uL (4.5-11.0)
--- NOTE | 2018-08-12 09:21 | CARD ---
APPROVED REPORT Date of service: 08/11/2018 EKG Measurement Heart [id number] <Conclusion> Atrial fibrillation with slow ventricular response Abnormal ECG
[2018-08-12 09:29] LABS: PARTIAL THROMBOPLASTIN TIME 137.7 Seconds (26.9-38.3)
[2018-08-12 09:35] LABS: INR 1.17; PROTHROMBIN TIME 13.2 SECONDS (9.4-12.5)
[2018-08-12] MEDS ORDERED: Enoxaparin 60 mg Syringe SC STA (13:26)
--- NOTE | 2018-08-12 15:12 | RAD ---
Date of service: 08/12/2018 PROCEDURE: CHEST RADIOGRAPH, 1 VIEW HISTORY: chf COMPARISON: 10/22/2016 FINDINGS: LUNGS: Clear. PLEURA: No pneumothorax or pleural fluid seen. CARDIOVASCULAR: No aortic atherosclerotic calcification present. Moderate cardiomegaly OSSEOUS STRUCTURES: No significant abnormalities. VISUALIZED UPPER ABDOMEN: Normal. OTHER FINDINGS: None. IMPRESSION: No active disease.
[2018-08-12 15:14] VITALS: BMI 36.2
[2018-08-12] MEDS ORDERED: Influenza Vaccine 60 mcg/0.5 mL SYR (4YR UP) IM ONE (15:14)
[2018-08-12] MEDS ORDERED: Pneumococcal 23-Valent Vaccine IM ONE (15:14)
[2018-08-12] MEDS: Enoxaparin 60 mg Syringe SC SCH (18:01)
--- NOTE | 2018-08-12 19:56 | CON ---
DATE: 08/12/2018 CARDIOLOGY CONSULT REASON FOR CONSULTATION: Hypertension, weakness, and new onset of atrial fibrillation. HISTORY OF PRESENT ILLNESS: The patient is an 82-year-old female who has a history of TIA in the past, history of hypertension, and diabetes mellitus, who was transferred from [facility] emergency room because of shortness of breath and new onset of atrial fibrillation. The patient was found to be in atrial fibrillation in her 50s and the patient denies any syncopal episode and is unaware of any prior history of heart attack and history of . Brain MRI was performed as an outpatient. PAST MEDICAL HISTORY: Hypertension, diabetes mellitus, and old CVA. SOCIAL HISTORY: The patient is a nonsmoker and nondrinker. She lives with her daughter. MEDICATIONS: The patient is currently on intravenous heparin infusion and therapeutic regimen for atrial fibrillation. REVIEW OF SYSTEMS: No fever or chills. No syncope or recent fall. No nausea or vomiting. No hematemesis or melena. PHYSICAL EXAMINATION: GENERAL: The patient is an elderly female who does not appear to be in acute distress. VITAL SIGNS: Blood pressure 137/59, heart rate of 47, temperature 98.2, and respirations 20. HEENT: Normocephalic. CHEST: Bilateral rhonchi. HEART: S1 and S2 regular. ABDOMEN: Soft. EXTREMITIES: Trace leg edema. LABORATORY DATA: SMA-7; sodium 139, potassium 5.2, chloride 110, CO2 of 21, glucose 114, BUN 37, and creatinine 1.2. ProBNP is 6470. First troponin is negative. TSH level is within normal limit. The latest PTT is 137 seconds. INR is within normal limits. ASSESSMENT: 1. New onset atrial fibrillation, currently with slow ventricular response. 2. Consider underlying congestive heart failure. 3. Hypertension and diabetes mellitus. 4. History of old cerebrovascular accident. 5. Mild hyperkaliemia. 6. Mild anemia. RECOMMENDATIONS: Discontinue intravenous heparin and start therapeutic subcutaneous Lovenox regimen. Obtain an echocardiogram, portable chest x-ray, and I will administer 1 dose of 40 mg of intravenous Lasix now. Lazarus Benoit MD [facility] # [id number]
[2018-08-13] MEDS ORDERED: Apap-Butalbital-Caffeine 325-50-40mg Tab PO PRN
--- NOTE | 2018-08-13 02:02 | HP ---
DATE OF EXAM: 08/12/2018 The patient was seen and examined in the emergency room on 08/12/2018 REASON FOR ADMISSION: Shortness of breath, new onset atrial fibrillation. HISTORY OF PRESENT ILLNESS: The patient is an 82-year-old female with past medical history of TIA, hypertension, diabetes mellitus, who is actually transferred from [facility] ER through the emergency department for shortness of breath and new onset atrial fibrillation. The patient says that she has had shortness of breath over the past three days. Family denies any history of atrial fibrillation in the past. Daughter was sitting on the bedside. The patient has appointment with the regulatory submissions associate, who they do not remember the name. The patient has swelling of the legs also. Denies constipation, diarrhea, blood in the stool, hematuria, or hematochezia. PAST MEDICAL HISTORY: As above, hypertension, diabetes mellitus, osteoarthritis, osteoporosis, irritable bowel syndrome, depression, hysterectomy. FAMILY HISTORY: Father and mother noncontributory. HABITS: Former smoker, now no smoking. No drugs. No ethanol. ALLERGIES: THE PATIENT IS ALLERGIC WITH PENICILLIN. HOME MEDICATIONS: Glucophage, omega-3, Bumex, Sudafed, cyanocobalamin, vitamin D2, Brovana, iron, Bystolic. REVIEW OF SYSTEMS: The patient was seen and examined at the bedside, looking comfortable. No fevers. No chills. No hematuria. No hematochezia. Still having shortness of breath. Feeling fatigued and tired. No headache. No dizziness. No focal weakness. PHYSICAL EXAMINATION: VITAL SIGNS: Temperature 97.7, pulse 87, respirations 16, blood pressure 116/84, pulse oximetry 100%. HEENT: Head; normocephalic, atraumatic. Eyes; PERRLA, extraocular muscles intact, conjunctivae clear. Nose patent. NECK: Supple. No carotid bruits. No JVD or thyromegaly. CHEST: Bilaterally symmetrical. HEART: S1 and S2 positive. LUNGS: Clear to auscultation. ABDOMEN: Soft. Bowel sounds positive. No organomegaly. EXTREMITIES: No edema. No cyanosis. NEUROLOGIC: The patient is awake and alert, moving all four extremities. No focal deficit. LABORATORY DATA: White blood cell is 4.8, hemoglobin 9.2, hematocrit 27.8, platelets 205. Sodium 139, potassium 5.4, BUN 37, creatinine of 1.7. Random glucose of 114. AST 57. ASSESSMENT AND PLAN: The patient is an 82-year-old lady with anemia, hyperkalemia, hyperchloremia, increased BUN, hyperglycemia, abnormal liver function test, congestive heart failure, has new onset atrial fibrillation. Chest x-ray done. According to Dr. Sebastien Alva, no active disease noted. The patient is seen by Cardiology, Dr. Kaycee Qiu. History of hypertension, diabetes mellitus, old cerebrovascular accident, new onset atrial fibrillation currently with slow ventricular response, mild anemia. PLAN: The patient was getting heparin. Information Clerk Brokerage discontinued heparin, started putting the patient on Lovenox regimen. Obtain echocardiography, chest x-ray. Gave a dose of Lasix. GI and DVT prophylaxis provided. Repeat labs. Length of time family discussion was done with the patient's daughter. We will follow up. Nati Contreras MD
[2018-08-13 07:19] LABS: HEMOGLOBIN 9.8 g/dL (12.0-16.0); MEAN CELL VOLUME 97.4 fl (80.0-105.0); MEAN CORPUSCULAR HEMOGLOBIN 31.5 pg (25.0-35.0); MEAN CORPUSCULAR HGB CONC 32.3 g/dl (31.0-37.0); MEAN PLATELET VOLUME 10.6 fl (7.0-11.0); RBC 3.11 10^6/uL (3.5-6.1); RED CELL DISTRIBUTION WIDTH 14.3 % (11.5-14.5); WHITE BLOOD COUNT 4.8 10^3/uL (4.5-11.0)
[2018-08-13] MEDS: Pantoprazole 40 mg EC Tab PO SCH (07:35)
[2018-08-13 07:43] LABS: IRON 73 ug/dL (45-180)
[2018-08-13 07:53] LABS: % IRON SATURATION 24 % (20-55); TOTAL IRON BINDING CAPACITY 302 ug/dL (265-497)
[2018-08-13] MEDS: Insulin Reg-LOW-Coverage SC SCH ×4 (08:49→23:22)
[2018-08-13 08:50] LABS: HDL CHOLESTEROL 70 mg/dL (29-60)
[2018-08-13 09:00] LABS: TROPONIN I 0.02 ng/mL
[2018-08-13 09:02] LABS: LDL CHOLESTEROL 142 mg/dL (0-129)
[2018-08-13] MEDS: Enoxaparin 60 mg Syringe SC SCH (09:35)
[2018-08-13] MEDS: Omega-3-Acid Ethyl Esters 1 GM Cap PO SCH (09:35)
[2018-08-13] MEDS: Iron Complex Polysacch 150mg Cap PO SCH ×2 (09:36→17:33)
[2018-08-13] MEDS: Non Formulary Medication (Febuxostat [Uloric] 40 MG) PO SCH (09:47)
[2018-08-13] MEDS ORDERED: IBANDRONATE SODIUM PO SCH (10:00)
--- NOTE | 2018-08-13 14:01 | CON ---
DATE: 08/13/2018 PULMONARY CONSULT NOTE REFERRING PHYSICIAN: Dr. Contreras. REASON FOR CONSULTATION: Shortness of breath, new onset atrial fibrillation. HISTORY OF PRESENT ILLNESS: This is an 82-year-old female with past medical history significant for TIA, hypertension, diabetes mellitus, osteoarthritis, depression, who was transferred from [facility] ER to the [place] [facility] Department for shortness of breath and new onset atrial fibrillation. The patient reports that she has had shortness of breath for about 3 days. Family denies any history of atrial fibrillation in the past. The patient also reports that about 2 weeks ago she had a cold. Today, the patient reports feeling well. No coughing, no shortness of breath, no palpitations, no chest pain, abdominal pain, diarrhea, nausea or leg pain reported. PAST MEDICAL HISTORY: Hypertension, diabetes mellitus, osteoarthritis, osteoporosis, irritable bowel syndrome, depression, hysterectomy and TIA. FAMILY HISTORY: No cardiopulmonary disease reported. SOCIAL HISTORY: Former smoker. No EtOH abuse. No illicit drug use. ALLERGIES: PENICILLIN. MEDICATIONS: Fiorecet one tab every 4 hours p.r.n. for mild pain, aspirin 81 mg daily, Bumex 1 mg daily, Lovenox 15 mg twice a day, Humulin R sliding scale a.c. and at bedtime, Claritin 10 mg daily, metformin 1000 mg twice a day, Uloric 40 mg daily, Boniva 300 daily, Bystolic 10 mg daily, Celebrex 500 mg at bedtime, Lovaza 1 g daily, Protonix 40 mg daily, Ferrex 150 mg twice a day. REVIEW OF SYSTEMS: No headache, rhinitis, cough, shortness of breath, chest pain, abdominal pain, nausea, vomiting, diarrhea, leg pain reported. The patient does have leg swelling. Reported that she does have shortness of breath, but no shortness of breath today. Denies any palpitation. Reports that she does snore. Denies any daytime sleepy, tired. PHYSICAL EXAMINATION GENERAL: No acute distress. VITAL SIGNS: Blood pressure 135/59, pulse 61, temperature 97.8, oxygen saturation 97% on room air. HEENT: Moist mucous membranes. Mallampati score of 4. NECK: Supple. No JVD. RESPIRATORY: Fair airflow bilaterally. CARDIOVASCULAR: S1 and S2, irregular. ABDOMEN: Soft and nontender. No distention. No organomegaly. EXTREMITIES: Trace bilateral lower extremity edema. NEUROLOGIC: Awake, alert and verbal. Follows commands. LABORATORY DATA: Reviewed. WBC 4.8, RBC 3.11, hemoglobin 9.8, hematocrit 30.3 and platelets 255. Sodium 140, potassium 4.5, chloride 107, carbon dioxide 27, anion gap 13, BUN 35, creatinine 1.4, GFR 36, POC glucose 104, random glucose 105, calcium 10, iron 73, TIBC 302, percent saturation 24, lactate dehydrogenase 542, total creatine kinase 50, troponin 0.02, ProBNP 6,580, triglycerides 101, cholesterol 264, LDL cholesterol 142, HDL cholesterol 70. TSH 1.08. Chest x-rays shows no active disease. EKG shows atrial fibrillation with low ventricular response. IMPRESSION AND PLAN: New onset atrial fibrillation, slow ventricular response, history of hypertension, diabetes mellitus, osteoarthritis, irritable bowel syndrome, depression. The patient will need cardiac workup. We recommend outpatient sleep study due to new onset atrial fibrillation to rule out cardiomyopathy, avoid nocturnal sedation. We will start the patient on Xopenex nebulizer p.r.n. for shortness of breath. Gastric prophylaxis, deep venous thrombosis prophylaxis, sleep apnea precaution, head of bed elevated at 45 degrees. Echocardiogram is ordered. We will followup when the report is available. This patient was seen and examined with Dr. Kruger. Discussed assessment and plan as described above. This patient was seen and examined with Damir Degroot, nurse practitioner. Discussed assessment and plan as described above. Thank you for this consult and we will followup with you. Damir Degroot APN Dewayne Kruger MD [facility]
[2018-08-13 14:02] LABS: FOLATE > 20.0 ng/mL
--- NOTE | 2018-08-13 14:40 | CARD ---
APPROVED REPORT Date of service: 08/13/2018 EXAM: Two-dimensional and M-mode echocardiogram with Doppler and color Doppler. INDICATION Atrial Fibrillation 2D DIMENSIONS Left Atrium (2D)4.6 (1.6-4.0cm)IVSd0.9 (0.7-1.1cm) LVDd4.5 (3.9-5.9cm)PWd1.0 (0.7-1.1cm) LVDs3.0 (2.5-4.0cm)FS (%) 33.8 % LVEF (%)62.8 (>50%) M-Mode DIMENSIONS Aortic Root2.80 (2.2-3.7cm)Aortic Cusp Exc.1.40 (1.5-2.0cm) Aortic Valve AoV Peak Jwezhghf307.0cm/Vane Peak GR.14mmHg Mitral Valve MV E Wdorpbwc483.0cm/sMV A Alouilop04.2cm/sE/A ratio2.9 TDI E/Lateral E'0.0E/Medial E'0.0 Pulmonary Valve PV Peak Slkqxcyt94.2cm/sPV Peak Grad.2mmHg Tricuspid Valve TR Peak Qguyqrem229ua/sRAP DETOGQYL39ulHtSG Peak Gr.59mmHg TSHO19lbVq LEFT VENTRICLE The left ventricle is normal size. There is normal left ventricular wall thickness. The left ventricular function is normal. The left ventricular ejection fraction is within the normal range. RIGHT VENTRICLE The right ventricle is normal size. There is normal right ventricular wall thickness. The right ventricular systolic function is normal. ATRIA The left atrium is moderately dilated. The right atrium is mildly dilated. AORTIC VALVE The aortic valve is moderately thickened. No aortic regurgitation is present. There is no aortic valvular stenosis. MITRAL VALVE The mitral valve is mildly thickened. Mitral regurgitation is mild. TRICUSPID VALVE There is moderate tricuspid regurgitation. There is severe pulmonary hypertension. PULMONIC VALVE There is mild pulmonic valvular regurgitation. GREAT VESSELS The aortic root is normal in size. The IVC is normal in size and collapses >50% with inspiration. PERICARDIAL EFFUSION There is no pericardial effusion. <Conclusion> The left ventricle is normal size. There is normal left ventricular wall thickness. The left ventricular function is normal. The left ventricular ejection fraction is within the normal range. Mitral regurgitation is mild. There is moderate tricuspid regurgitation. There is severe pulmonary hypertension.
--- NOTE | 2018-08-13 17:44 | PN ---
DATE: 08/13/2018 SUBJECTIVE: The patient denies any dizziness. She is ambulating with physical therapy. Denies any chest pain. PHYSICAL EXAMINATION: VITAL SIGNS: Blood pressure 135/59, heart rate 61, temperature 97.8, respirations 20. HEENT: Normocephalic. CHEST: Clear. LUNGS: S1 and S2 regular. ABDOMEN: Soft. EXTREMITIES: No edema. LABORATORY DATA: Hemoglobin and hematocrit 9.8 and 30.8 with white count and platelet count within normal limit. Today's BUN and creatinine are 35 and 1.4 respectively. ASSESSMENT AND PLAN: 1. New-onset atrial fibrillation with slightly rapid ventricular response. 2. Chronic renal insufficiency. 3. Consider underlying congestive heart failure. RECOMMENDATIONS: Start Eliquis 2.5 mg twice a day and discontinue . I will follow the echocardiograph study performed today. Lazarus Benoit MD
[2018-08-13] MEDS: Lidocaine 5% Patch TD SCH (21:14)
[2018-08-13] MEDS: CELECOXIB 100 MG PO SCH (23:03)
--- NOTE | 2018-08-14 01:10 | PN ---
DATE: 08/13/2018 SUBJECTIVE: The patient is an 82-year-old female. The patient was seen and examined at the bedside on 08/13/2018. Both daughters and son-in-law was on the bedside, looking comfortable. No chest pain. No palpitations. No headache. No dizziness. No hematuria. No hematochezia. No fever. No chills. Denies any daytime sleepiness. Denies palpitations. PHYSICAL EXAMINATION: VITAL SIGNS: Blood pressure 135/59, pulse of 51, temperature 97.7, and oxygen saturation 97% on room air. HEENT: Head; normocephalic and atraumatic. Eyes; PERRLA. Extraocular muscles intact. Conjunctivae clear. Nose patent. Mucous membranes moist. NECK: Supple. No carotid bruits, JVD, or thyromegaly. CHEST: Bilaterally symmetrical. HEART: S1 and S2 positive. LUNGS: Clear to auscultation. ABDOMEN: Soft. Bowel sounds present. No organomegaly. EXTREMITIES: No edema. No cyanosis. NEUROLOGIC: The patient is awake and alert. Follows simple commands. LABORATORY DATA: White blood cell 4.8, hemoglobin 9.8, hematocrit 30.3, and platelets 255. Sodium 140, potassium 4.5, BUN 35, and creatinine 1.4. Glucose 104. Triglycerides 101. TSH 1.08. MEDICATIONS: Fioricet, aspirin, Bumex, Lovenox. insulin, Claritin, metformin, Uloric , Celebrex, and Lovaza. ASSESSMENT AND PLAN: Ms. Edward Wyatt is an 82-year-old female with new atrial fibrillation with slow ventricular response, history of hypertension, diabetes mellitus, osteoarthritis, irritable bowel syndrome, and depression. The patient went for echocardiography, rule out cardiomyopathy. Dr. Kruger started the patient on Xopenex inhalers for shortness of breath p.r.n. Gastric and deep venous thrombosis prophylaxes provided. Echocardiography reviewed by me. There is no pericardial effusion. Ejection fraction within normal limits of left ventricle. Length of time discussion done with the patient's two daughters and son-in-law. All questions answered. Chronic renal insufficiency. Congestive heart failure, started on Eliquis by Dr. Lazarus Benoit. Repeat labs. We will follow up. Nati Contreras MD [facility]
[2018-08-14] MEDS: Pantoprazole 40 mg EC Tab PO SCH (05:58)
[2018-08-14] MEDS: Insulin Reg-LOW-Coverage SC SCH ×4 (07:48→22:28)
[2018-08-14] MEDS: Non Formulary Medication (Febuxostat [Uloric] 40 MG) PO SCH (09:15)
[2018-08-14] MEDS: Iron Complex Polysacch 150mg Cap PO SCH ×2 (09:15→19:47)
[2018-08-14] MEDS: Lidocaine 5% Patch TD SCH (09:16)
[2018-08-14] MEDS: Omega-3-Acid Ethyl Esters 1 GM Cap PO SCH (09:17)
--- NOTE | 2018-08-14 11:13 | RAD ---
Date of service: 08/13/2018 PROCEDURE: Right Knee Radiographs. HISTORY: right knee pain COMPARISON: None. FINDINGS: BONES: Normal. No fracture. JOINTS: Normal. No osteoarthritis. There is narrowing of the patellofemoral joint JOINT EFFUSION: None. OTHER FINDINGS: Vascular calcifications IMPRESSION: Narrowing of the patellofemoral joint. No evidence of fracture
[2018-08-14] MEDS ORDERED: Levalbuterol 0.63 MG/3 ML Inhal Soln UD IH PRN (12:05)
--- NOTE | 2018-08-14 15:39 | PQF ---
PROVIDER RESPONSE TEXT: Acute diastolic heart failure REVIEWER QUERY TEXT: CHF Acuity and Type Congestive Heart Failure is documented in the Medical Record. Please document the type and acuity (in cludes probable or suspected) Such as: Type: -- Systolic -- Diastolic -- Combined -- Other, please specify Acuity: -- Acute -- Chronic -- Acute on chronic -- Other, please specify Also please document the underlying cause of the CHF (includes probable or suspected) The patient's Clinical Indicators include: Query created by: Hanane Lee on 08/14/2018 2:03 PM Electronically signed by: Lazarus Benoit MD 08/14/2018 3:37 PM
--- NOTE | 2018-08-14 16:11 | PN ---
DATE: 08/14/2018 PULMONARY PROGRESS NOTE REFERRING PHYSICIAN: Nati Contreras MD SUBJECTIVE: The patient is sitting up in armchair in room, daughter at bedside. No acute distress. No overnight events reported. The patient reports feeling well today. No headache, rhinitis, cough, shortness of breath, chest pain, abdominal pain, nausea, vomiting, diarrhea, leg pain or leg swelling reported. OBJECTIVE: GENERAL: No acute distress. VITAL SIGNS: Blood pressure 141/48, pulse 62 and temperature 97.8. HEENT: Moist mucous membranes. Mallampati score of 4. NECK: Supple. No JVD. RESPIRATORY: Fair airflow bilaterally. CARDIOVASCULAR: S1 and S2, irregular. ABDOMEN: Soft and tender. No distention. No organomegaly. EXTREMITIES: Trace bilateral lower extremity edema. NEUROLOGIC: Awake, alert and verbal. Follows commands. MEDICATIONS: Reviewed. Fioricet 1 tab every 4 hours p.r.n., Eliquis 2.5 mg twice a day, aspirin 81 mg daily, Lipitor 10 mg at dinner, Bumex 1 mg daily, Humulin R sliding scale a.c. and at bedtime, Xopenex 0.63 mg inhalation every 6 hours p.r.n., Lidoderm patch transdermal daily, Claritin 10 mg daily, metformin 1000 mg twice a day, Uloric 40 mg daily, 300 mL daily, Bystolic 10 mg daily, Celebrex 100 mg at bedtime, Lovaza 1 g daily, Protonix 40 mg daily and Ferrex 150 mg twice a day. LABORATORY DATA: Reviewed. POC glucose 106. Knee x-ray shows narrowing of the patellofemoral joint, no evidence of fracture. Echocardiogram shows left ventricular ejection fraction within normal range. Severe pulmonary hypertension, RVSP 65. IMPRESSION AND PLAN: New onset atrial fibrillation. The patient with severe pulmonary hypertension, history of hypertension, diabetes mellitus, osteoarthritis, irritable bowel syndrome and depression. Case discussed in-depth with daughter at bedside with apiculture teacher present. We will order VQ scan to rule out pulmonary embolism. We will get venous Doppler bilateral lower extremities. We will order rheumatoid factor, sed rate, CRP and REZA on patient due to severe pulmonary hypertension. The patient is currently on anticoagulation therapy for atrial fibrillation. Avoid nocturnal sedation. Continue p.r.n. inhaled bronchodilators, gastric prophylaxis, sleep apnea precaution and head of bed elevated at 45 degrees. We do suspect sleep apnea in this patient. The patient will need sleep study as outpatient. This patient was seen and examined with Dr. Kruger. Discussed assessment and plan as described above. This patient was seen and examined with Damir Degroot, nurse practitioner. Discussed assessment and plan as described above. Thank you for this consult. We will follow with you. Damir Degroot APN Dewayne Kruger MD
--- NOTE | 2018-08-14 18:55 | NM ---
Date of service: 08/14/2018 COMPARISON: None available TECHNIQUE: Forty mCi technetium 99-m DTPA aerosol. Five mCI technetium 99-m MAA administered intravenously. FINDINGS: VENTILATION COMPONENT: Normal. PERFUSION COMPONENT: Normal. IMPRESSION: Lowprobability ventilation perfusion scan for pulmonary embolism.
--- NOTE | 2018-08-14 19:12 | RAD ---
Date of service: 08/14/2018 HISTORY: POST VQ SCAN COMPARISON: 08/12/2018 TECHNIQUE: Chest PA and lateral FINDINGS: LUNGS: No active pulmonary disease. PLEURA: No significant pleural effusion identified. No pneumothorax apparent. CARDIOVASCULAR: No aortic atherosclerotic calcification present. Normal cardiac size. No pulmonary vascular congestion. OSSEOUS STRUCTURES: No significant abnormalities. VISUALIZED UPPER ABDOMEN: Normal. OTHER FINDINGS: None. IMPRESSION: No active disease.
[2018-08-14] MEDS: CELECOXIB 100 MG PO SCH (22:27)
[2018-08-15] MEDS: Pantoprazole 40 mg EC Tab PO SCH (05:45)
[2018-08-15 07:07] LABS: HEMOGLOBIN 9.4 g/dL (12.0-16.0); MEAN CORPUSCULAR HEMOGLOBIN 31.6 pg (25.0-35.0); MEAN CORPUSCULAR HGB CONC 32.6 g/dl (31.0-37.0); MEAN PLATELET VOLUME 10.8 fl (7.0-11.0); RBC 2.97 10^6/uL (3.5-6.1); RED CELL DISTRIBUTION WIDTH 13.8 % (11.5-14.5); WHITE BLOOD COUNT 5.3 10^3/uL (4.5-11.0)
[2018-08-15 07:14] LABS: CALCIUM 9.5 mg/dL (8.4-10.5); URIC ACID 6.2 mg/dL (2.5-6.2)
--- NOTE | 2018-08-15 08:20 | PN ---
DATE: 08/14/2018 SUBJECTIVE: The patient is an 82-year-old female. The patient was seen and examined at the bedside on 08/14/2018. Daughter was sitting at the bedside also. Knees getting better. Having lidocaine patch. No fever. No chills. No chest pain. No headache. No dizziness. No hematuria. No hematochezia. PHYSICAL EXAMINATION: VITAL SIGNS: Temperature 97.8, pulse 62, blood pressure 140/48, respiratory rate 18. HEENT: Head; normocephalic, atraumatic. Eyes; PERRLA. Extraocular muscles intact. Conjunctivae clear. Nose patent. Mucous membranes moist. NECK: Supple. No carotid bruit. No JVD or thyromegaly. CHEST: Bilaterally symmetrical. HEART: S1 and S2 positive. LUNGS: Clear to auscultation. ABDOMEN: Soft. Bowel sounds present. No organomegaly. EXTREMITIES: Upper extremities, no edema, no cyanosis. Right knee is having lidocaine patch and tender. NEUROLOGIC: The patient is awake, alert. Follows simple commands. MEDICATIONS: Bumex, Celebrex, Claritin, Ecotrin, Eliquis, Uloric, iron, Sudafed, Glucophage, insulin, Boniva, Lidoderm, Lipitor, Lovaza, Bystolic, Protonix, Xopenex. LABORATORY DATA: White blood cell 4.8, hemoglobin 9.8, hematocrit 30.3, and platelet 255. Glucose 106. ASSESSMENT AND PLAN: an 82-year-old lady with renal insufficiency, hypercholesterolemia, started on Lipitor, congestive heart failure, high benign prostatic hypertrophy, history of hyperkalemia, hyperchloremia improved, anemia, came with a new-onset atrial fibrillation, seen by Dr. Lazarus Benoit, popcorn machine operator. X-ray of right knee done. It showed narrowing of the patellofemoral joint. No evidence of fracture. Per Dr. Benoit, the patient had new-onset atrial fibrillation with slightly rapid ventricular response. He started the patient on Eliquis twice a day. Echocardiography done. Waiting for further input from the popcorn machine operator. Out of bed, physical therapy. Gastrointestinal, deep venous thrombosis prophylaxis. Repeat labs. We will follow up. Nati Contreras MD [facility] # [id number] J[facility] JAY
[2018-08-15] MEDS: Insulin Reg-LOW-Coverage SC SCH ×4 (08:30→22:30)
[2018-08-15] MEDS: Lidocaine 5% Patch TD SCH (10:03)
[2018-08-15] MEDS: Omega-3-Acid Ethyl Esters 1 GM Cap PO SCH (10:03)
[2018-08-15] MEDS: Iron Complex Polysacch 150mg Cap PO SCH ×2 (10:03→18:04)
[2018-08-15] MEDS: Non Formulary Medication (Febuxostat [Uloric] 40 MG) PO SCH (10:04)
--- NOTE | 2018-08-15 13:38 | PN ---
DATE: 08/15/2018 PULMONARY PROGRESS NOTE REFERRING PHYSICIAN: Nati Contreras MD SUBJECTIVE: The patient is sitting in armchair in room. No acute distress. No overnight events reported. Reports feeling well today. No headache, rhinitis, cough, shortness of breath, chest pain, abdominal pain, nausea, vomiting, diarrhea, leg pain or leg swelling reported. OBJECTIVE: GENERAL: No acute distress. VITAL SIGNS: Blood pressure 124/71, pulse 69, and temperature 97.6. HEENT: Moist mucous membranes. Mallampati score of 4. NECK: Supple. No JVD. RESPIRATORY: Fair airflow bilaterally. CARDIOVASCULAR: S1 and S2, irregular. ABDOMEN: Soft and nontender. No distention. No organomegaly. EXTREMITIES: Trace bilateral lower extremity edema. NEUROLOGIC: Awake, alert, verbal, and follows commands. MEDICATIONS: Reviewed. Fioricet 1 tablet every 4 hours p.r.n., Eliquis 2.5 mg twice a day, Aspirin 81 mg daily, Lipitor 10 mg at dinner, Bumex 1 mg daily, Humulin R sliding scale a.c. and at bedtime, Xopenex 0.63 mg inhalation every 6 hours p.r.n., Lidoderm patch transdermally daily to affected area, Claritin 10 mg daily, metformin 1000 mg twice a day, Uloric 40 mg daily, Boniva 300 mg daily, Bystolic 10 mg daily, Celebrex 100 mg at bedtime, Lovaza 1 gram daily, Protonix 40 mg daily and Ferrex 150 mg twice a day. LABORATORY DATA: Reviewed. WBC 5.3, RBC 3.97, hemoglobin 9.4, hematocrit 28.8 and platelets 264. Sodium 138, potassium 4.6, chloride 103, carbon dioxide 28, anion gap 12, BUN 43, creatinine 1.6, GFR 31, POC glucose 77, random and glucose 80. Uric acid 6.2. Calcium 9.5. C-reactive protein pending, ESR 90. Chest x-ray shows no active disease. Lung, skin nuclear medicine. A long perfusion ventilation scan shows low probability ventilation perfusion scan for pulmonary embolism. Extremity ultrasound report pending. IMPRESSION AND PLAN: New onset atrial fibrillation, severe pulmonary hypertension, diabetes mellitus, osteoarthritis, irritable bowel syndrome, depression, and history of hypertension. Pulmonary point of view, waiting for venous Doppler report. At this time, it appears the patient has no thromboembolic disease. Recommend cardiology followup. The patient will need sleep study and full pulmonary function test as outpatient. If the patient is discharged, we will follow up with rheumatoid factor and REZA lab work. Continue anticoagulation therapy. Continue p.r.n. inhaled bronchodilators, gastric prophylaxis, continuous positive airway pressure precautions, head of bed elevated 45 degrees. This patient was seen and examined with Dr. Kruger. Discussed assessment and plan as described above. This patient was seen and examined with Mikayla Reich, nurse practitioner. Discussed assessment and plan as described above. Thank you for this consult. We will follow with you. Damir Degroot APN Dewayne Kruger MD
--- NOTE | 2018-08-15 17:55 | PQF ---
PROVIDER RESPONSE TEXT: Provider was unable to determine a response for this query. REVIEWER QUERY TEXT: Kidney Disease, Chronic CKD Stage Chronic Kidney Disease (CKD) is documented in the Medical Record. Please specify the disease stage ( includes probable or suspected) Such as: -- Chronic kidney disease Stage 1 -- Chronic kidney disease Stage 2 -- Chronic kidney disease Stage 3 -- Chronic kidney disease Stage 4 -- Chronic kidney disease Stage 5 -- Chronic kidney disease Stage 5, requiring dialysis -- End Stage Renal Disease -- Other, please specify Stages are defined by the [employer] as follows: CKD Stage I GFR >= 90 ml / min per 1.73 m2 and persistent albuminuria CKD Stage 2 GFR between 60 and 89 with persistent albuminuria CKD Stage 3 GFR between 30 and 59 CKD Stage 4 GFR between 15 and 29 CKD Stage 5 GFR between <15 or End Stage Renal Disease The patient's Clinical Indicators include: Pt w/ hx HTN, DM renal insufficiency. Please document stage of CKD POA Query created by: Hanane Lee on 08/15/2018 1:59 PM Electronically signed by: Nati Contreras MD 08/15/2018 5:53 PM
--- NOTE | 2018-08-15 18:58 | US ---
HISTORY: Leg pain and swelling. Evaluate for DVT PHYSICIAN(S): Jae Colorado MD. TECHNIQUE: Duplex sonography and color-flow Doppler with graded compression were used to evaluate the deep venous systems of both lower extremities. FINDINGS: The visualized deep venous systems of both lower extremities are sonographically normal and compressible. Normal wave forms and augmentation are seen. There is no sonographic evidence for deep venous thrombosis in the visualized segments of both lower extremities. IMPRESSION: No sonographic evidence for deep venous thrombosis in the visualized segments of both lower extremities.
[2018-08-15] MEDS: CELECOXIB 100 MG PO SCH (22:30)
--- NOTE | 2018-08-16 00:08 | PN ---
DATE: 08/15/2018 SUBJECTIVE: The patient was seen and examined at the bedside 08/15/2018, sitting on the chair, daughter was sitting at the bedside, still complaining about leg pain and right knee has lidocaine patch feeling little bit better. No fever. No chills. No hematuria. No hematochezia. No headache. No dizziness. No chest pain. No palpitations. PHYSICAL EXAMINATION: VITAL SIGNS: Blood pressure 124/70, pulse 69, and temperature 97.6. HEENT: Head is normocephalic and atraumatic. Eyes; PERRLA. Extraocular muscles intact. Conjunctivae clear. Nose patent. Mucous membrane moist. NECK: Supple. No carotid bruits. No JVD. No thyromegaly. CHEST: Bilateral symmetrical. HEART: S1 and S2 positive. LUNGS: Clear to auscultation. ABDOMEN: Soft. Bowel sounds present. No organomegaly. EXTREMITIES: Trace bilateral lower extremity edema and tenderness. NEUROLOGIC: The patient is awake, alert, follows simple commands. Moving all four extremities. MEDICATIONS: Fioricet, Eliquis, aspirin, Lipitor, Bumex, insulin sliding scale, Xopenex, Lidoderm patch, Claritin, metformin, Boniva, Celebrex, Lovaza, and Protonix. LABORATORY DATA: White blood cell 5.3, hemoglobin 9.4, hematocrit 28.8, and platelets 264. Sodium 138, potassium 4.6, BUN 43, creatinine 1.6, glucose 77. Uric acid 6.2. Chest x-ray shows no active disease. ASSESSMENT AND PLAN: Edward Wyatt is an 82-year-old female with multiple medical problems, new onset atrial fibrillation, severe pulmonary hypertension, diabetes mellitus, osteoarthritis, irritable bowel syndrome, degenerative joint disease as I look at that on the right knee, depression, history of hypertension, came with palpitations, chest pain, shortness of breath. Waiting for venous and Doppler report. Deck Supervisor is on the case. Geometry Professor is on the case. Continue anticoagulation. GI and DVT prophylaxis. Out of bed physical therapy. Repeat labs. We will follow up. Nait Contreras MD
[2018-08-16] MEDS: Pantoprazole 40 mg EC Tab PO SCH (06:56)
[2018-08-16 07:12] VITALS: BP 130/49; PULSE 73; RESP 19; TEMP 98.1; O2SAT 96
[2018-08-16] MEDS: Insulin Reg-LOW-Coverage SC SCH (08:25)
[2018-08-16] MEDS: Iron Complex Polysacch 150mg Cap PO SCH ×2 (09:25→10:18)
[2018-08-16] MEDS: Non Formulary Medication (Febuxostat [Uloric] 40 MG) PO SCH (09:26)
[2018-08-16] MEDS: Lidocaine 5% Patch TD SCH (10:18)
[2018-08-16] MEDS: Omega-3-Acid Ethyl Esters 1 GM Cap PO SCH (10:18)
--- NOTE | 2018-08-16 13:08 | PN ---
DATE: 08/16/2018 PULMONARY PROGRESS NOTE REFERRING PHYSICIAN: Nati Contreras MD SUBJECTIVE: The patient is sitting in armchair in room, daughter at bedside. No acute distress. No overnight events reported. No headache, rhinitis, cough, shortness of breath, chest pain, abdominal pain, nausea, vomiting, diarrhea, or leg pain reported. OBJECTIVE: VITAL SIGNS: Blood pressure 130/49, pulse 73, temperature 98.1, oxygen saturation 96% on room air. GENERAL: No acute distress. HEENT: Moist mucous membranes. Mallampati score of 4. NECK: Supple. No JVD. RESPIRATORY: Fair airflow bilaterally. CARDIOVASCULAR: S1 and S2. ABDOMEN: Soft, nontender. No distention. No organomegaly. EXTREMITIES: Trace bilateral lower extremity edema. NEUROLOGIC: Awake, alert, verbal, and follows commands. MEDICATIONS: Reviewed. Fioricet one tablet every 4 hours p.r.n. mild pain, Eliquis 2.5 mg twice a day, aspirin 81 mg daily, Lipitor 10 mg at dinner, Bumex 4 mg daily, Humulin R sliding scale a.c. and at bedtime, Xopenex 0.63 mg inhalation every 6 hours p.r.n., Lidoderm patch transdermally daily, Claritin 10 mg daily, metformin 1000 mg twice a day, Uloric 40 mg daily, Celebrex 100 mg at bedtime, Lovaza 1 gram daily, Protonix 40 mg daily, Ferrex 150 mg twice a day. LABORATORY DATA: Reviewed. POC glucose 77. Rheumatoid factor negative. REZA negative. C-reactive protein 63.7. Bilateral venous Doppler negative. IMPRESSION AND PLAN: New onset atrial fibrillation, severe pulmonary hypertension, diabetes mellitus, osteoarthritis, irritable bowel syndrome, depression, and history of hypertension. Pulmonary point of view, the patient with severe pulmonary hypertension which may be related to obstructive sleep apnea along with cardiovascular disease. No sign of connective tissue disease based on laboratory data. The patient will need sleep study as outpatient. Continue Cardiology followup. Continue anticoagulation therapy for atrial fibrillation. Continue as needed inhaled bronchodilators, gastric prophylaxis, sleep apnea precaution, head of bed elevated 45 degrees. We recommend the patient also to have full pulmonary function tests as outpatient. This patient was seen and examined with Dr. Kruger. Discussed assessment and plan as described above. This patient was seen and examined with Prudence Damir, nurse practitioner. Discussed assessment and plan as described above. Thank you for this consult. We will follow with you. Damir Degroot APN Dewayne Kruger MD
== END 2018-08-16 13:00 | disposition home or self-care (01) | DRG 308 ==
LOC: ED 21:51 → ERH 22:42 → 2RSO 08-12 19:20
PROVIDERS: ADMIT Internal Medicine; ATTEND Internal Medicine
DX: I48.91 Unspecified atrial fibrillation (principal); I50.31 Acute diastolic (congestive) heart failure; I13.0 Hypertensive heart and chronic kidney disease with heart failure and stage 1 through stage 4 chronic kidney disease, or unspecified chronic kidney disease; D64.9 Anemia, unspecified; N18.9 Chronic kidney disease, unspecified; E11.22 Type 2 diabetes mellitus with diabetic chronic kidney disease; I27.20 Pulmonary hypertension, unspecified; E11.65 Type 2 diabetes mellitus with hyperglycemia; E78.00 Pure hypercholesterolemia, unspecified; K58.9 Irritable bowel syndrome, unspecified; E87.5 Hyperkalemia; F32.9 Major depressive disorder, single episode, unspecified; M81.0 Age-related osteoporosis without current pathological fracture; Z86.73 Personal history of transient ischemic attack (TIA), and cerebral infarction without residual deficits; Z79.84 Long term (current) use of oral hypoglycemic drugs; Z79.899 Other long term (current) drug therapy; Z87.891 Personal history of nicotine dependence

== ENCOUNTER 2018-10-04 07:41 | Outpatient (CLI) | payer MEDICARE, MEDICAID | END 2018-10-04 07:42 | disposition home or self-care (01) | LOC: CARDIO 07:41 | DX: R06.02 Shortness of breath (principal); I10 Essential (primary) hypertension; I48.91 Unspecified atrial fibrillation ==

== ENCOUNTER 2018-10-14 06:49 | Day surgery (SDC) | payer MEDICARE, MEDICAID ==
[2018-10-11 11:48] VITALS: BMI 35.2
[2018-10-14 07:35] LABS: BASO # 0.03 K/mm3 (0.0-2.0); BASO % 0.8 % (0.0-3.0); EOS # 0.1 (0.0-0.7); HEMOGLOBIN 10.6 g/dL (12.0-16.0); LYMPH % 24.7 % (22.0-35.0); MEAN CELL VOLUME 95.3 fl (80.0-105.0); MEAN CORPUSCULAR HEMOGLOBIN 31.4 pg (25.0-35.0); MEAN CORPUSCULAR HGB CONC 32.9 g/dl (31.0-37.0); MEAN PLATELET VOLUME 9.9 fl (7.0-11.0); MONO # 0.4 (0.1-0.6); MONO % 9.3 % (1.0-6.0); RBC 3.38 10^6/uL (3.5-6.1); RED CELL DISTRIBUTION WIDTH 12.9 % (11.5-14.5)
[2018-10-14 07:40] LABS: INR 1.1; PARTIAL THROMBOPLASTIN TIME 32.5 Seconds (26.9-38.3); PROTHROMBIN TIME 12.4 SECONDS (9.4-12.5)
[2018-10-14 07:42] LABS: CALCIUM 9.8 mg/dL (8.4-10.5)
[2018-10-14] MEDS ORDERED: Lidocaine PF 2% (5 ml) Inj (For Cardiac Arrhy) ONE (08:21)
[2018-10-14] MEDS ORDERED: Iodixanol 320 MG/ML 100 ML BOTTLE IV ONE (08:22)
[2018-10-14] MEDS ORDERED: Iodixanol 320 MG/ML 200 ML BOTTLE IV ONE (08:22)
[2018-10-14] MEDS ORDERED: Midazolam 2 MG/2 ML VIAL ONE ×2 (09:02→09:18)
[2018-10-14] MEDS ORDERED: Sodium Chloride 0.9% 1,000 ML IV SCH (09:45)
[2018-10-14 10:27] VITALS: RESP 18
--- NOTE | 2018-10-14 12:30 | CARD ---
APPROVED REPORT Date of service: 10/14/2018 EKG Measurement Heart [id number] <Conclusion> Atrial fibrillation with slow ventricular response Nonspecific ST and T wave abnormality, probably digitalis effect Abnormal ECG
--- NOTE | 2018-10-14 12:41 | CARDCATH ---
PROCEDURE DATE: 10/14/2018 HISTORY: The patient is an 83-year-old woman who presents with an abnormal stress test. The patient's past medical history includes angina, atrial fibrillation, treated with Eliquis. Her stress test was abnormal. In addition, she suffers from diabetes mellitus, hypercholesterolemia. Because of this, cardiac catheterization was recommended. PROCEDURE: Left heart catheterization with coronary arteriography and left ventriculogram with supra-aortic valvular injection. The right femoral artery was cannulated with a 6-[place] sheath. There were no complications. I performed moderate sedation which included the presence of an independent trained observer that assisted in monitoring the patient's level of consciousness and physiologic status. After administration of Versed and fentanyl, my intra-service time was 30 minutes. Findings on catheterization revealed a left ventricle that contract normally. Estimated ejection fraction of 60%. Supra-aortic valvular injection revealed no aortic insufficiency. Her coronary anatomy revealed heavily calcified arteries. The right coronary artery was a dominant vessel and found to have diffuse atherosclerosis with 50% stenosis in the midportion. The left main artery was unremarkable. The LAD revealed diffuse atherosclerosis throughout its tree with multiple 50% lesions in the midportion. The diagonal vessels revealed a 50% stenosis in its midportion. The circumflex artery and obtuse marginal branches revealed diffuse atherosclerosis with a 50% stenosis in its midportion. AngioSeal was used to close the femoral artery site. The patient tolerated the procedure well. In summary, the procedure revealed normal LV function with an EF of 60%. No aortic insufficiency. Diffuse coronary atherosclerosis with multiple 50% lesions throughout its coronary tree as well as diffuse intimal irregularity throughout its course. Given these findings, the patient's treatment will be medical. She should go back on Eliquis for atrial fibrillation and a baby aspirin. She needs to undergo a strict cardiac risk reduction program. Jae Crocker MD
[2018-10-14 14:05] VITALS: O2SAT 98
[2018-10-14 15:53] VITALS: BP 143/70; PULSE 60; TEMP 98.6
== END 2018-10-14 15:45 | disposition home or self-care (01) ==
LOC: CATH 06:49
PROVIDERS: ATTEND Internal Medicine Cardiovascular Disease
DX: I25.10 Atherosclerotic heart disease of native coronary artery without angina pectoris (principal); I48.91 Unspecified atrial fibrillation; Z79.01 Long term (current) use of anticoagulants; E78.00 Pure hypercholesterolemia, unspecified; E11.9 Type 2 diabetes mellitus without complications
CPT/HCPCS: 36415; 80048; 80061; 85025; 85610; 85730; 86850; 86900; 93005; 93458; 99152; C1760; C1769; C2629; J1644; J2250; J3010; J7030; Q9966